=== PATIENT | female | born 1940 | race Asian ===

== ENCOUNTER 2017-07-11 20:25 | Observation (INO) | payer MEDICARE, OTHER ==
--- NOTE | 2017-07-11 20:39 | ER Document Report ---
ED Medical Screen (RME) - General Chief Complaint: Difficulty speaking, dizzy Stated Complaint: SLURRED SPEECH Time Seen by Provider: 07/11/17 20:35 Notes: Family states that last night after coming home from a birthday democrat patient was very weak and could barely get into bed. They state that they noticed when the patient awoke this morning that she was talking "like a baby". Patient states that she has noticed she has had trouble speaking all day. She denies any previous history of stroke. She denies any current pain. She denies any changes of vision or swallowing. She denies any numbness tingling weakness or paresthesias of any extremity focally, however family does state she seems to be weak in general.. TRAVEL OUTSIDE OF THE [place] IN LAST 30 DAYS: No - Related Data Allergies/Adverse Reactions: Sulfa (Sulfonamide Antibiotics) Allergy (Verified 12/15/13 22:26) BLOTCHES Past Medical History - Past Medical History Cardiac Medical History: Reports: Hx Coronary Artery Disease - HIGH CHOLESTEROL , Hx Hypercholesterolemia, Hx Hypertension Denies: Hx Heart Attack Pulmonary Medical History: Denies: Hx Asthma, Hx Bronchitis, Hx COPD, Hx Pneumonia Neurological Medical History: Denies: Hx Cerebrovascular Accident, Hx Seizures Endocrine Medical History: Reports: Hx Diabetes Mellitus Type 2 Musculoskeltal Medical History: Denies Hx Arthritis Past Surgical History: Reports: Hx Hysterectomy - Immunizations Hx Diphtheria, Pertussis, Tetanus Vaccination: Yes Physical Exam - Vital signs Vitals: Temp Pulse Resp BP Pulse Ox 98.4 F 78 16 172/68 H 97 07/11/17 20:31 07/11/17 20:31 07/11/17 20:31 07/11/17 20:31 07/11/17 20:31 Course - Vital Signs Vital signs: Temp Pulse Resp BP Pulse Ox 98.4 F 78 16 172/68 H 97 07/11/17 20:31 07/11/17 20:31 07/11/17 20:31 07/11/17 20:31 07/11/17 20:31
--- NOTE | 2017-07-11 21:03 | RADIOLOGY REPORT (SQ) ---
EXAM DESCRIPTION: CT HEAD WITHOUT COMPLETED DATE/TIME: 07/11/2017 8:51 pm REASON FOR STUDY: slurred speech COMPARISON: None. TECHNIQUE: Axial images acquired through the brain without intravenous contrast. Images reviewed wi th bone, brain and subdural windows. Images stored on PACS. All CT scanners at this facility use dose modulation, iterative reconstruction, and/or weight based d osing when appropriate to reduce radiation dose to as low as reasonably achievable (ALARA). [facility]: Dose Right [facility]: CareDose [facility]: Dose Right [facility]: Teradose 4D [facility]: Xylo RADIATION DOSE: CT Rad equipment meets quality standard of care and radiation dose reduction techniq ues were employed. CTDIvol: 64.6 mGy. DLP: 1163 mGy-cm.mGy. LIMITATIONS: None. FINDINGS: VENTRICLES: Prominent. CEREBRUM: No masses. No hemorrhage. No midline shift. Areas of low density in the white matter mos t likely due to chronic micro-vascular ischemic change. No evidence for acute infarction. CEREBELLUM: No masses. No hemorrhage. No alteration of density. No evidence for acute infarction. EXTRAAXIAL SPACES: Age-related involutional change. No fluid collections. No masses. ORBITS AND GLOBE: No intra- or extraconal masses. Normal contour of globe without masses. CALVARIUM: No fracture. PARANASAL SINUSES: No fluid or mucosal thickening. SOFT TISSUES: No mass or hematoma. OTHER: No other significant finding. IMPRESSION: CHRONIC CHANGES OF ATROPHY AND MICROVASCULAR ISCHEMIA. NO ACUTE PROCESS. EVIDENCE OF ACUTE STROKE: NO. TECHNICAL DOCUMENTATION: JOB ID: [id number] Quality ID # [id number]: Final reports with documentation of one or more dose reduction techniques (e.g., Au tomated exposure control, adjustment of the mA and/or kV according to patient size, use of iterative reconstruction technique) 2010 [employer]- All Rights Reserved Reading location - IP/workstation name: [email or web address]
[2017-07-11 21:39] LABS: ABSOLUTE BASOPHILS # (AUTO) 0.1 10^3/uL (0.0-0.2); ABSOLUTE EOSINOPHILS # (AUTO) 0.1 10^3/uL (0.0-0.6); ABSOLUTE MONOCYTES (AUTO) 0.5 10^3/uL (0.1-1.4); ABSOLUTE NEUT (AUTO) 5.5 10^3/uL (1.7-8.2); BASOPHILS % (AUTO) 0.8 % (0-2); EOSINOPHILS % (AUTO) 0.7 % (0-6); HEMATOCRIT 40.7 % (36.0-47.0); LYMPHOCYTES % (AUTO) 24.9 % (13-45); MEAN CORPUSCULAR HGB CONC 34.4 g/dL (32.0-36.0); MEAN CORPUSCULAR VOLUME 87 fl (80-97); MONOCYTES % (AUTO) 6.1 % (3-13); PLATELET COUNT 295 10^3/uL (150-450); RED BLOOD COUNT 4.66 10^6/uL (3.72-5.28); SEGMENTED NEUTROPHILS % (AUTO) 67.5 % (42-78); TOTAL CELLS COUNTED % (AUTO) 100 %; WHITE BLOOD COUNT 8.1 10^3/uL (4.0-10.5)
[2017-07-11 21:53] LABS: ALANINE AMINOTRANSFERASE 30 U/L (9-52); ALKALINE PHOSPHATASE 94 U/L (38-126); ANION GAP 16 (5-19); ASPARTATE AMINO TRANSFERASE 26 U/L (14-36); BILIRUBIN,DIRECT 0.1 mg/dL (0.0-0.4); BILIRUBIN,TOTAL 0.6 mg/dL (0.2-1.3); BLOOD UREA NITROGEN 21 mg/dL (7-20); CALCIUM 10.6 mg/dL (8.4-10.2); CARBON DIOXIDE 25 mmol/L (22-30); CHLORIDE 90 mmol/L (98-107); GLUCOSE 182 mg/dL (75-110); SODIUM 131.1 mmol/L (137-145); TOTAL PROTEIN 7.9 g/dL (6.3-8.2)
[2017-07-11] MEDS ORDERED: ASPIRIN 81 MG TABLET, CHEWABLE PO ONE (22:25)
--- NOTE | 2017-07-11 22:30 | ER Document Report ---
ED General - General Chief Complaint: Difficulty speaking, dizzy Stated Complaint: SLURRED SPEECH Time Seen by Provider: 07/11/17 20:35 Notes: Patient is a 77-year-old female without past medical history who presents with slurring of her speech since waking up this morning. Patient was last noted to have normal speech prior to going to bed. She has never had similar symptoms in the past. She states the symptoms have been constant since onset. Nothing seems to improve or worsen the symptoms. She has not seen her primary doctor regarding these symptoms. She denies any focal weakness, numbness, headache, neck pain or confusion. Her niece at the bedside who is her attraction attendant states that she does not normally at all speak like this. Family presents to the emergency department when they noted that the symptoms are not improving as they hoped they would. TRAVEL OUTSIDE OF THE [place] IN LAST 30 DAYS: No - Related Data Allergies/Adverse Reactions: Sulfa (Sulfonamide Antibiotics) Allergy (Verified 12/15/13 22:26) BLOTCHES Past Medical History - General Information source: Patient - Social History Smoking Status: Never Smoker Chew tobacco use (# tins/day): No Frequency of alcohol use: None Drug Abuse: None Lives with: Family Family History: Reviewed & Not Pertinent Patient has suicidal ideation: No Patient has homicidal ideation: No - Past Medical History Cardiac Medical History: Reports: Hx Coronary Artery Disease - HIGH CHOLESTEROL , Hx Hypercholesterolemia, Hx Hypertension Denies: Hx Heart Attack Pulmonary Medical History: Denies: Hx Asthma, Hx Bronchitis, Hx COPD, Hx Pneumonia Neurological Medical History: Denies: Hx Cerebrovascular Accident, Hx Seizures Endocrine Medical History: Reports: Hx Diabetes Mellitus Type 2 Renal/ Medical History: Denies: Hx Peritoneal Dialysis Musculoskeltal Medical History: Denies Hx Arthritis Past Surgical History: Reports: Hx Hysterectomy - Immunizations Hx Diphtheria, Pertussis, Tetanus Vaccination: Yes Review of Systems - Review of Systems Notes: Constitutional: Negative for fever. HENT: Negative for sore throat. Eyes: Negative for visual changes. Cardiovascular: Negative for chest pain. Respiratory: Negative for shortness of breath. Gastrointestinal: Negative for abdominal pain, vomiting or diarrhea. Genitourinary: Negative for dysuria. Musculoskeletal: Negative for back pain. Skin: Negative for rash. Neurological: Negative for headaches, weakness or numbness. Positive for slurred speech 10 point ROS negative except as marked above and in HPI. Physical Exam - Vital signs Vitals: Temp Pulse Resp BP Pulse Ox 98.4 F 78 16 172/68 H 97 07/11/17 20:31 07/11/17 20:31 07/11/17 20:31 07/11/17 20:31 07/11/17 20:31 Interpretation: Hypertensive Notes: PHYSICAL EXAMINATION: GENERAL: Well-appearing, well-nourished and in no acute distress. HEAD: Atraumatic, normocephalic. EYES: Pupils equal round and reactive to light, extraocular movements intact, sclera anicteric, conjunctiva are normal. ENT: nares patent, oropharynx clear without exudates. Moist mucous membranes. NECK: Normal range of motion, supple without lymphadenopathy LUNGS: Breath sounds clear to auscultation bilaterally and equal. No wheezes rales or rhonchi. HEART: Regular rate and rhythm without murmurs ABDOMEN: Soft, nontender, normoactive bowel sounds. No guarding, no rebound. No masses appreciated. EXTREMITIES: Normal range of motion, no pitting or edema. No cyanosis. NEUROLOGICAL: Face symmetric. Tongue protrudes midline. Extraocular motions intact. Pupils are 2 mm and equally reactive. Mild expressive aphasia, no receptive aphasia, normal gait. 5 out of 5 strength in both the distal and proximal upper and lower extremities bilaterally. Sensation is grossly intact throughout. Finger to nose testing normal. Pronator drift normal. PSYCH: Normal mood, normal affect. SKIN: Warm, Dry, normal turgor, no rashes or lesions noted. Course - Re-evaluation Re-evalutation: 07/11/17 22:27 Patient presents with signs and symptoms most consistent with an acute stroke. It appears that the patient is a very mild expressive aphasia but this is notable on exam. Her neurologic examination is otherwise unremarkable without any additional focal neurologic deficits. Symptoms have been present since she woke up this morning and she is therefore not a TPA candidate. CT the head shows chronic microvascular changes but no acute infarction or bleed. Patient has received aspirin here in the emergency department but given that she has had an acute stroke she does warrant hospitalization. I discussed with the hospitalist for admission. An MRI and carotid Dopplers will be performed. Her laboratories here in the emergency room to suggest a possible diagnosis of diabetes. Patient and her niece at the bedside are in agreement with this plan. - Vital Signs Vital signs: Temp Pulse Resp BP Pulse Ox 98.5 F 76 19 166/72 H 99 07/12/17 02:22 07/12/17 00:00 07/12/17 02:03 07/12/17 02:03 07/12/17 02:03 - Laboratory Result Diagrams: 07/11/17 21:20 07/11/17 21:20 Laboratory results interpreted by me: 07/11/17 21:20 Sodium 131.1 L Chloride 90 L BUN 21 H Est GFR (Non-Af Amer) 55 L Glucose 182 H Calcium 10.6 H - Diagnostic Test Radiology reviewed: Image reviewed, Reports reviewed Radiology results interpreted by me: 07/11/17 22:28 CT head: No acute intracranial bleed or mass Discharge - Discharge Clinical Impression: Acute ischemic stroke, Expressive aphasia Condition: Fair Disposition: ADMITTED INPATIENT Admitting Provider: Hospitalist - ana Unit Admitted: Telemetry
[2017-07-11] MEDS ORDERED: OXYCODONE-ACETAMINOPHEN 5-325 MG TABLET PO PRN (23:09)
[2017-07-11] MEDS ORDERED: ACETAMINOPHEN 325 MG TABLET PO PRN (23:09)
[2017-07-11] MEDS ORDERED: PROMETHAZINE HCL INJ 25 MG/1 ML VIAL IV PRN (23:09)
[2017-07-12 00:58] LABS: APPEARANCE,URINE CLEAR; BILIRUBIN,URINE NEGATIVE (NEGATIVE); COLOR,URINE STRAW; GLUCOSE, URINE 50 mg/dL (NEGATIVE); KETONES,URINE NEGATIVE (NEGATIVE); LEUKOCYTE ESTERASE,URINE MODERATE (NEGATIVE); NITRITE,URINE NEGATIVE (NEGATIVE); PROTEIN,URINE 100 mg/dL (NEGATIVE); URINE SPECIFIC GRAVITY 1.004; UROBILINOGEN,URINE NEGATIVE mg/dL (<2.0)
[2017-07-12] MEDS ORDERED: DEXTROSE 40% GEL 15 GM TUBE PO PRN ×2 (02:10)
[2017-07-12] MEDS ORDERED: DEXTROSE 50%-WATER 25 GM/50 ML DISP.SYRIN IV PRN ×2 (02:10)
[2017-07-12] MEDS ORDERED: GLUCAGON,HUMAN RECOMB 1 MG INJ IM PRN (02:10)
--- NOTE | 2017-07-12 02:10 | PDOC H&P ---
History of Present Illness Patient complains of: Dysarthria when she woke up this a.m. History of Present Illness: ASHLYN SALCIDO is a 77 year old female with history of hypertension, type 2 diabetes mellitus and hyperlipidemia (not on any medications at this time) was admitted with above-mentioned complaints. Some of the history was obtained from her niece at bedside. The patient apparently noticed that she was aphasic when she woke up this morning. And since it was persistent throughout the day, she decided to come to the hospital for further management and treatment. According to her niece, the patient complained of feeling dizzy but there was no loss of consciousness or any seizure activity witnessed. The patient denied any vertigo, blurred vision , focal numbness or weakness or any dysphasia. She also denied any headache, fever or chills, nausea or vomiting, chest pain or shortness of breath. She is not on baby aspirin at home. In the ED, her temperature was 98.4, heart rate 78, respiratory rate 16, blood pressure 172/68 with oxygen saturation of 97% on room air. Her blood glucose was 182. Her head CT scan did not show any acute findings. She received 81 mg aspirin 1. Past Medical History Medical History: Other - According to the patient is on previous records. Cardiac Medical History: Reports: Coronary Artery Disease, Hyperlipidema - high cholesterol., Hypertension Denies: Myocardial Infarction Pulmonary Medical History: Denies: Asthma, Bronchitis, Chronic Obstructive Pulmonary Disease (COPD), Pneumonia Neurological Medical History: Denies: Seizures Endocrine Medical History: Reports: Diabetes Mellitus Type 2 Musculoskeltal Medical History: Denies: Arthritis Hematology: Denies: Anemia Past Surgical History Past Surgical History: Reports: Hysterectomy Social History Smoking Status: Never Smoker Cigarettes Packs Per Day: 0 Frequency of Alcohol Use: None Hx Recreational Drug Use: No - Advance Directive Resuscitation Status: Full Code Family History Parental Family History Reviewed: Yes - No family history of cardiac disease. Children Family History Reviewed: No Sibling(s) Family History Reviewed.: Yes Medication/Allergy Home Medications: Ascorbic Acid [Vitamin C 500 mg Tablet] 500 mg PO DAILY 06/29/13 Atorvastatin Calcium [Lipitor 40 mg Tablet] 40 mg PO QHS 06/29/13 Lisinopril 5 mg PO DAILY 06/29/13 Metformin HCl [Glucophage] 500 mg PO DAILY 06/29/13 Multivitamin [Multi Vitamin Daily] 1 each PO DAILY 06/29/13 Ciprofloxacin HCl [Cipro 500 mg Tablet] 500 mg PO BID #20 tablet 12/15/13 Allergies/Adverse Reactions: Sulfa (Sulfonamide Antibiotics) Allergy (Verified 12/15/13 22:26) BLOTCHES Review of Systems ROS unobtainable: Other - Positives and negatives as detailed in the HPI. The patient denied any bowel pain, diarrhea constipation or any urinary symptoms. Physical Exam Vital Signs: Temp Pulse Resp BP Pulse Ox 98.4 F 75 16 170/78 H 98 07/11/17 20:31 07/11/17 21:28 07/11/17 21:28 07/11/17 21:28 07/11/17 21:28 Intake & Output 07/10/17 07/11/17 07/12/17 06:59 06:59 06:59 Weight 45.359 kg Results Laboratory Results: 07/11/17 21:20 07/11/17 21:20 07/11/17 07/11/17 21:20 21:20 WBC 8.1 RBC 4.66 Hgb 14.0 Hct 40.7 MCV 87 MCH 30.0 MCHC 34.4 RDW 13.0 Plt Count 295 Seg Neutrophils % 67.5 Lymphocytes % 24.9 Monocytes % 6.1 Eosinophils % 0.7 Basophils % 0.8 Absolute Neutrophils 5.5 Absolute Lymphocytes 2.0 Absolute Monocytes 0.5 Absolute Eosinophils 0.1 Absolute Basophils 0.1 Sodium 131.1 L Potassium 4.0 Chloride 90 L Carbon Dioxide 25 Anion Gap 16 BUN 21 H Creatinine 0.98 Est GFR ( Amer) > 60 Est GFR (Non-Af Amer) 55 L Glucose 182 H Calcium 10.6 H Total Bilirubin 0.6 AST 26 ALT 30 Alkaline Phosphatase 94 Total Protein 7.9 Albumin 5.0 EKG Comments: 12-lead EKG, sinus rhythm ventricular rate 75, [place] 0, QTC prolongation, no acute changes. When compared to previous 12-lead EKG done on 12/15/2013. Impressions: Head CT 07/11/17 20:36 IMPRESSION: CHRONIC CHANGES OF ATROPHY AND MICROVASCULAR ISCHEMIA. NO ACUTE PROCESS. EVIDENCE OF ACUTE STROKE: NO. Assessment & Plan - Diagnosis (1) TIA (transient ischemic attack) Qualifiers: Transient cerebral ischemia type: unspecified Qualified Code(s): G45.9 - Transient cerebral ischemic attack, unspecified Is this a current diagnosis for this admission?: Yes Plan: And/or acute CVA. Not a candidate for TPA given NIHSS 1 and unknown onset of symptoms. Her CAT scan of the head was negative for any acute findings. Will order stroke workup including MRI head, MRA head and neck, echocardiogram and HbA1c and fasting profile. Will start 325 mg aspirin daily in addition to 40 mg Lipitor daily. Will consult speech therapy, no need for PT/OT for now. (2) Essential hypertension Is this a current diagnosis for this admission?: Yes Plan: Permissive hypertension. Will continue to monitor and start BP medications as indicated. Of note, the patient has history of hypertension but she is not on any home medications. (3) Type 2 diabetes mellitus Qualifiers: Diabetes mellitus complication status: without complication Is this a current diagnosis for this admission?: Yes Plan: Will follow-up HbA1c and start lispro sliding scale for now. (4) Hyperlipidemia Qualifiers: Hyperlipidemia type: unspecified Qualified Code(s): E78.5 - Hyperlipidemia , unspecified Is this a current diagnosis for this admission?: Yes Plan: Will follow-up fasting lipid profile and continue Lipitor for now. - Time Time Spent: 50 to 70 Minutes Anticipated discharge: Home
[2017-07-12] MEDS ORDERED: INFLUENZA ADLT QUAD (36MOS+) 2017-18 VAC 0.5 ML SYR IM PRN (04:20)
[2017-07-12] MEDS: HEPARIN SOD (PORCINE) 5,000 UNIT/ML 1 ML SYRINGE SUBCUT SCH ×2 (06:19→13:03)
[2017-07-12 06:55] LABS: HEMATOCRIT 42.5 % (36.0-47.0); HEMOGLOBIN 14.8 g/dL (12.0-15.5); MEAN CORPUSCULAR HEMOGLOBIN 30.2 pg (27.0-33.4); MEAN CORPUSCULAR HGB CONC 34.9 g/dL (32.0-36.0); MEAN CORPUSCULAR VOLUME 86 fl (80-97); PLATELET COUNT 284 10^3/uL (150-450); RED BLOOD COUNT 4.91 10^6/uL (3.72-5.28); RED CELL DISTRIBUTION WIDTH 12.8 % (11.5-14.0); WHITE BLOOD COUNT 7.7 10^3/uL (4.0-10.5)
[2017-07-12 07:11] LABS: ANION GAP 16 (5-19); BLOOD UREA NITROGEN 17 mg/dL (7-20); CALCIUM 10.7 mg/dL (8.4-10.2); CARBON DIOXIDE 27 mmol/L (22-30); CHLORIDE 96 mmol/L (98-107); GLUCOSE 191 mg/dL (75-110); POTASSIUM 4.1 mmol/L (3.6-5.0); SODIUM 139.1 mmol/L (137-145); TRIGLYCERIDES 278 mg/dL (<150)
[2017-07-12 07:19] LABS: CHOLESTEROL 469.06 mg/dL (0-200); VLDL CHOLESTEROL 55.6 mg/dL (10-31)
[2017-07-12 07:38] LABS: DIRECT LDL 340 mg/dL (<100)
--- NOTE | 2017-07-12 08:03 | EKG REPORT ---
SEVERITY:- ABNORMAL ECG - SINUS RHYTHM CONSIDER LEFT VENTRICULAR HYPERTROPHY : Confirmed by: Karthikeyan Zhang MD 12-Jul-2017 08:02:20
[2017-07-12] MEDS: INSULIN LISPRO 100 UNIT/ML 3 ML VIAL SUBCUT PRN ×2 (08:26→13:10)
[2017-07-12] MEDS ORDERED: ASPIRIN 325 MG TABLET, ENT COATED PO SCH (10:00)
--- NOTE | 2017-07-12 11:34 | RADIOLOGY REPORT (SQ) ---
EXAM DESCRIPTION: MRI HEAD COMBO; MRA HEAD WITHOUT COMPLETED DATE/TIME: 07/12/2017 11:13 am REASON FOR STUDY: TIA/CVA COMPARISON: CT brain 07/11/2017 MRA neck without and with contrast same date TECHNIQUE: Multiplanar imaging includes noncontrasted T1, T2, FLAIR, diffusion with ADC map and post gadolinium contrast T1 sequences. Images stored on PACS. [place] MRA exam was performed, with 3D [id number] acquisition. Source data and maximum intensity projected images were reviewed. CONTRAST TYPE AND DOSE: 20 mL Prohance. RENAL FUNCTION: GFR > 60. LIMITATIONS: None. FINDINGS: ANATOMY: No developmental anomalies. Normal vascular flow voids. Pituitary fossa normal. CSF SPACES: Normal in size and contour. No hemorrhage. CEREBRUM: Extensive colonic increased FLAIR/T2 and decreased T1 weighted signal throughout the bifron carmen and biparietal hemispheric white matter from chronic small vessel ischemic change. No mass effec t or midline shift. On diffusion-weighted image 15 series 4, a punctate focus of high signal is present in the left parie carmen cortex. This represents a tiny acute or subacute cortical infarct. POSTERIOR FOSSA: Diffusion-weighted images are positive for a 1.5 cm diameter area of ischemic change . This correlates with increased FLAIR/T2 signal and decreased T1 weighted signal. There is decreas ed density in this area on prior CT 07/11/2017. This likely represents a subacute nonhemorrhagic infa rct. Tiny subacute nonhemorrhagic infarcts are seen in the right cerebellar hemisphere on diffusion weight ed image 6. DIFFUSION IMAGING: Positive as above ORBITS: Post bilateral cataract surgery PARANASAL SINUSES: No fluid levels. Mucosa normal. [place] MRA: Right vertebral artery is dominant, an anatomic variant. Small left vertebral artery with flow in the left PICA identified. Right AICA/PICA trunk is present. Bilateral superior cerebellar and posterior cerebral arteries are patent. There is mild atherosclerotic narrowing of the the proximal right M-1 segment of the right MCA. No s egmental anterior circulation occlusion, aneurysm or vascular malformation. IMPRESSION: Subacute nonhemorrhagic bilateral cerebellar hemisphere and left parietal cortical infar cts. Extensive chronic small vessel ischemic change in the hemispheric white matter No high-grade stenosis of the posterior circulation on MRA a [place]. Mild atherosclerotic change M-1 segment right MCA EVIDENCE OF ACUTE STROKE: NO. COMMENT: Results called to Asiya Lee TECHNICAL DOCUMENTATION: JOB ID: [id number] [employer]- All Rights Reserved Reading location - IP/workstation name: [email or web address]
--- NOTE | 2017-07-12 11:34 | RADIOLOGY REPORT (SQ) ---
EXAM DESCRIPTION: MRI HEAD COMBO; MRA HEAD WITHOUT COMPLETED DATE/TIME: 07/12/2017 11:13 am REASON FOR STUDY: TIA/CVA COMPARISON: CT brain 07/11/2017 MRA neck without and with contrast same date TECHNIQUE: Multiplanar imaging includes noncontrasted T1, T2, FLAIR, diffusion with ADC map and post gadolinium contrast T1 sequences. Images stored on PACS. [place] MRA exam was performed, with 3D [id number]-af-[id number] acquisition. Source data and maximum intensity projected images were reviewed. CONTRAST TYPE AND DOSE: 20 mL Prohance. RENAL FUNCTION: GFR > 60. LIMITATIONS: None. FINDINGS: ANATOMY: No developmental anomalies. Normal vascular flow voids. Pituitary fossa normal. CSF SPACES: Normal in size and contour. No hemorrhage. CEREBRUM: Extensive colonic increased FLAIR/T2 and decreased T1 weighted signal throughout the bifron carmen and biparietal hemispheric white matter from chronic small vessel ischemic change. No mass effec t or midline shift. On diffusion-weighted image 15 series 4, a punctate focus of high signal is present in the left parie carmen cortex. This represents a tiny acute or subacute cortical infarct. POSTERIOR FOSSA: Diffusion-weighted images are positive for a 1.5 cm diameter area of ischemic change . This correlates with increased FLAIR/T2 signal and decreased T1 weighted signal. There is decreas ed density in this area on prior CT 07/11/2017. This likely represents a subacute nonhemorrhagic infa rct. Tiny subacute nonhemorrhagic infarcts are seen in the right cerebellar hemisphere on diffusion weight ed image 6. DIFFUSION IMAGING: Positive as above ORBITS: Post bilateral cataract surgery PARANASAL SINUSES: No fluid levels. Mucosa normal. [place] MRA: Right vertebral artery is dominant, an anatomic variant. Small left vertebral artery with flow in the left PICA identified. Right AICA/PICA trunk is present. Bilateral superior cerebellar and posterior cerebral arteries are patent. There is mild atherosclerotic narrowing of the the proximal right M-1 segment of the right MCA. No s egmental anterior circulation occlusion, aneurysm or vascular malformation. IMPRESSION: Subacute nonhemorrhagic bilateral cerebellar hemisphere and left parietal cortical infar cts. Extensive chronic small vessel ischemic change in the hemispheric white matter No high-grade stenosis of the posterior circulation on MRA [place]. Mild atherosclerotic change M-1 segment right MCA EVIDENCE OF ACUTE STROKE: NO. COMMENT: Results called to Asiya Lee TECHNICAL DOCUMENTATION: JOB ID: [id number] [email or web address]- All Rights Reserved Reading location - IP/workstation name: [email or web address]
--- NOTE | 2017-07-12 11:39 | RADIOLOGY REPORT (SQ) ---
EXAM DESCRIPTION: MRA NECK COMBO COMPLETED DATE/TIME: 07/12/2017 11:14 am REASON FOR STUDY: TIA/CVA COMPARISON: CT brain 07/11/2017 MR spine brain without and with contrast 07/12/2017 MRA exam [place] 07/12/2017 TECHNIQUE: MRA of the carotid and vertebral arteries was performed using 2D and 3D [id number]-cs-[id number] te chniques without and with the use of gadolinium. 3-D MIPs performed at the workstation and stored on PACS. CONTRAST TYPE AND DOSE: 20 mL Prohance. RENAL FUNCTION: GFR > 60. LIMITATIONS: Limited contrast bolus FINDINGS: GREAT VESSEL ORIGINS: Not included in the field of view VERTEBRAL ARTERIES: Right vertebral artery is dominant, with strong MR flow signal throughout its cou rse in the neck and at the skullbase. Left vertebral artery is nondominant, small in size throughout the neck, with diminished flow signal as it courses around the left C1 lateral mass, with flow signal identified in the intracranial portio n. High cervical stenosis could not entirely be excluded. This is of area of signal dropout on the 2D bomx-zl-gipcek images related to in plane flow. RIGHT CAROTID SYSTEM: No significant stenosis. LEFT CAROTID SYSTEM: No significant stenosis. OTHER: No other significant finding. IMPRESSION: No cervical carotid or carotid bifurcation significant stenosis. Right vertebral artery dominant. Small left vertebral artery, there is some signal dropout at the level of the left C1 lateral mass wh ich may be artifactual. Dissection in this region could not entirely be excluded COMMENT: Quality ID #[id number]: Measurements of distal internal carotid diameter were used as the denomina tor for stenosis measurement. TECHNICAL DOCUMENTATION: JOB ID: [id number] [employer]- All Rights Reserved Reading location - IP/workstation name: [email or web address]
--- NOTE | 2017-07-12 15:17 | PDOC DISCHARGE SUMMARY ---
General - Admit/Disc Date/PCP Admission Date/Primary Care Provider: 07/11/17 23:10 financial aid administrator: Dr Ny Discharge Date: 07/12/17 - Discharge Diagnosis (1) Acute CVA (cerebrovascular accident) Is this a current diagnosis for this admission?: Yes Summary: The patient had evidence of an acute CVA. MRI of the brain was positive for subacute nonhemorrhagic bilateral cerebellar hemisphere and left parietal cortical infarct. She had extensive chronic small vessel ischemic changes noted as well. She had an MRA of the carotid arteries and [place] with no significant stenosis. She has been started on at 325 mg aspirin as well as high-dose Lipitor. She will follow-up with her primary care physician next week. (2) Hypertriglyceridemia Is this a current diagnosis for this admission?: Yes Summary: The patient has a markedly elevated lipid panel. Total cholesterol of 469, LDL of 340, triglycerides of 278. HDL is 57. She has been started on 80 mg of Lipitor as well as 145 mg of TriCor daily. (3) Type 2 diabetes mellitus Is this a current diagnosis for this admission?: Yes Summary: Hemoglobin A1c was 7.6. She will resume her home regimen. (4) Ataxia Is this a current diagnosis for this admission?: Yes Summary: The patient was evaluated by physical therapy. They are recommending home health physical therapy. I am getting the patient a rolling walker. (5) Essential hypertension Is this a current diagnosis for this admission?: Yes Summary: Would recommend aggressive control. We will allow for permissive hypertension here in the hospital due to acute CVA. Her blood pressure is above goal however (6) Hyponatremia Is this a current diagnosis for this admission?: Yes Summary: Resolved with IV fluid hydration. Likely due to volume depletion (7) Hypercalcemia Is this a current diagnosis for this admission?: Yes Summary: Hypertension this did not improve with IV fluid hydration. Further workup can be obtained as an outpatient. - Additional Information Resuscitation Status: Full Code Discharge Diet: Cardiac Discharge Activity: Activity As Tolerated, Balance Activity w/Rest, Slowly Increase Activity, Supervised Activity Prescriptions: Atorvastatin Calcium [Lipitor 80 mg Tablet] 80 mg PO QHS #30 tablet Fenofibrate Nanocrystallized [Tricor 145 mg Tablet] 145 mg PO QHS #30 tablet Aspirin [Ecotrin 325 mg EC Tablet] 325 mg PO DAILY #30 tabec Home Medications: Aspirin [Ecotrin 325 mg EC Tablet] 325 mg PO DAILY #30 tabec 07/12/17 Atorvastatin Calcium [Lipitor 80 mg Tablet] 80 mg PO QHS #30 tablet 07/12/17 Donepezil HCl [Aricept] 10 mg PO DAILY 07/12/17 Fenofibrate Nanocrystallized [Tricor 145 mg Tablet] 145 mg PO QHS #30 tablet Memantine HCl [Namenda] 5 mg PO DAILY 07/12/17 Pioglitazone HCl [Actos 15 mg Tablet] 15 mg PO DAILY 07/12/17 Sitagliptin Phos/Metformin HCl [Janumet Xr 50-1,000 mg Tablet] 1 tab PO BID History of Present Illness Patient complains of: Difficulty walking with slurred speech History of Present Illness: The patient presented to the hospital with difficulty speaking and feeling off balance. Hospital Course Hospital Course: The patient is a pleasant 77-year-old female with a past medical history significant for hypertension, type 2 diabetes mellitus and hyperlipidemia. She was not on any medications for her cholesterol at the time of admission. The patient was brought to the hospital with some aphasia. She also was complaining of being off balance. The patient in the emergency room had a CT of the brain which did not reveal any acute findings. She was placed in observation in the hospital. The patient was found to have evidence of an acute bilateral cerebellar infarct. She has been started on 325 mg aspirin and aggressive lipid control. She has a markedly elevated lipid panel. The patient was evaluated by physical therapy and was able to ambulate safely with a rolling walker. They are recommending home health physical therapy at discharge. The patient did have an MRA of the neck and the [place] both of which did not reveal any hemodynamically significant stenosis. She did have an echocardiogram performed. The informal report was that it was normal. She will follow-up with her primary care physician Dr. Alvarez hopefully at the end of this week or the beginning of next week. He can obtain the formal report for follow-up. At this point maximum hospital benefit has been reached. The patient will be discharged home today in stable condition. Physical Exam Vital Signs: Temp Pulse Resp BP Pulse Ox 98.7 F 83 16 145/77 H 100 07/12/17 12:20 07/12/17 12:20 07/12/17 12:20 07/12/17 12:20 07/12/17 12:20 Intake & Output 07/11/17 07/12/17 07/13/17 06:59 06:59 06:59 Intake Total 0 Balance 0 Weight 43.8 kg General appearance: PRESENT: no acute distress, well-developed, well-nourished Head exam: PRESENT: atraumatic, normocephalic Mouth exam: PRESENT: moist, tongue midline Respiratory exam: PRESENT: clear to auscultation rhoda. ABSENT: rales, rhonchi, wheezes Cardiovascular exam: PRESENT: RRR. ABSENT: diastolic murmur, rubs, systolic murmur GI/Abdominal exam: PRESENT: normal bowel sounds, soft. ABSENT: distended, guarding, mass, organolmegaly, rebound, tenderness Rectal exam: PRESENT: deferred Extremities exam: PRESENT: full ROM. ABSENT: calf tenderness, clubbing, pedal edema Neurological exam: PRESENT: alert, altered, awake, oriented to person, oriented to place, oriented to time, oriented to situation, ataxia, other - She has some slight slurred speech but her aphasia is gone. Psychiatric exam: PRESENT: appropriate affect, normal mood. ABSENT: homicidal ideation, suicidal ideation Skin exam: PRESENT: dry, intact, warm. ABSENT: cyanosis, rash Results Laboratory Results: 07/12/17 06:26 07/12/17 06:26 07/11/17 07/12/17 07/12/17 23:29 06:26 06:26 WBC 7.7 RBC 4.91 Hgb 14.8 Hct 42.5 MCV 86 MCH 30.2 MCHC 34.9 RDW 12.8 Plt Count 284 Sodium 139.1 Potassium 4.1 Chloride 96 L Carbon Dioxide 27 Anion Gap 16 BUN 17 Creatinine 0.86 Est GFR ( Amer) > 60 Est GFR (Non-Af Amer) > 60 Glucose 191 H Calcium 10.7 H Triglycerides 278 H Cholesterol 469.06 H LDL Cholesterol Direct 340 H VLDL Cholesterol 55.6 H HDL Cholesterol 57 Urine Color STRAW Urine Appearance CLEAR Urine pH 6.0 Ur Specific [place] 1.004 Urine Protein 100 H Urine Glucose (UA) 50 H Urine Ketones NEGATIVE Urine Blood SMALL H Urine Nitrite NEGATIVE Ur Leukocyte Esterase MODERATE H Urine WBC (Auto) 19 Urine RBC (Auto) 1 Impressions: Head CT 07/11/17 20:36 IMPRESSION: CHRONIC CHANGES OF ATROPHY AND MICROVASCULAR ISCHEMIA. NO ACUTE PROCESS. EVIDENCE OF ACUTE STROKE: NO. Brain MRI with MRA 07/12/17 00:00 IMPRESSION: Subacute nonhemorrhagic bilateral cerebellar hemisphere and left parietal cortical infarcts. Extensive chronic small vessel ischemic change in the hemispheric white matter No high-grade stenosis of the posterior circulation on MRA a [place]. Mild atherosclerotic change M-1 segment right MCA EVIDENCE OF ACUTE STROKE: NO. Head MRI 07/12/17 00:00 IMPRESSION: Subacute nonhemorrhagic bilateral cerebellar hemisphere and left parietal cortical infarcts. Extensive chronic small vessel ischemic change in the hemispheric white matter No high-grade stenosis of the posterior circulation on MRA a [place]. Mild atherosclerotic change M-1 segment right MCA EVIDENCE OF ACUTE STROKE: NO. Neck MRA 07/12/17 00:00 IMPRESSION: No cervical carotid or carotid bifurcation significant stenosis. Right vertebral artery dominant. Small left vertebral artery, there is some signal dropout at the level of the left C1 lateral mass which may be artifactual. Dissection in this region could not entirely be excluded Qualifiers - * PATEINT BEING DISCHARGED WITH ANY OF THE FOLLOWING DIAGNOSIS?: Stroke VTE patient discharged on overlapping Therapy?: No Reason(s) for not prescribing Overlap Therapy:: Not indicated Stroke Pt being discharged on Anti-thrombolytic therapy?: Yes Stroke Pt being discharged on Anti-coagulation therapy?: No Reason(s) for not prescribing Anti-coagulation therapy:: Tx not tolerated Stroke Pt being discharged on Statins?: Yes Plan Discharge Plan: She will be discharged home today with home health services. Time Spent: Greater than 30 Minutes
[2017-07-12 16:53] VITALS: BP 154/41
--- NOTE | 2017-07-12 18:32 | XCELERA REPORT ---
[address] [address] Transthoracic Echocardiogram Report Name: ASHLYN SALCIDO Age: 77 yrs Gender: Female : 1940 Patient Status: Inpatient Patient Location: [address] [place] [address] Study Date: 07/12/2017 02:32 PM Height: 59 in Weight: 97 lb BSA: 1.4 m2 Procedure: A complete two-dimensional transthoracic echocardiogram was performed (2D, M-mode, spectral and color flow Doppler). The study was technically adequate with some images being suboptimal in quality. Reason For Study: TIA/CVA Ordering Physician: CATHY MOLINA Performed By: Heidi Houston Interpretation Summary The left ventricular ejection fraction is normal. Doppler measurements suggest pseudonormalized left ventricular relaxation, which is associated with grade II/IV or mild to moderate diastolic dysfunction There is mild concentric left ventricular hypertrophy. The left ventricle is grossly normal size. Wall motion cannot be accurately commented on, but no definite regional wall motion abnormalities noted. The right ventricular systolic function is normal. The right atrium is normal. The left atrial size is normal. There is a trace amount of mitral regurgitation There is no mitral valve stenosis. There is a mild to moderate amount of aortic regurgitation There is no aortic valve stenosis There is a trace or physiologic amount of tricuspid regurgitation Tricuspid regurgitation jet envelope not well defined to measure RV systolic pressure accurately. The aortic root is not well visualized but is probably normal size. The inferior vena cava appeared normal and decreased > 50% with respiration (RAP 5-10 mmHg) There is no pericardial effusion. No definite cardiac source of CVA/TIA noted on this particular trans- thoracic study. Consider GIULIA if clinically indicated. May consider mobile cardiac telemetry monitoring (MCT) for ruling out transient AFIB. MMode/2D Measurements & Calculations RVDd: 2.2 cm LVIDd: 3.4 cm FS: 35.1 % Ao root diam: 2.5 cm IVSd: 0.94 cm LVIDs: 2.2 cm EDV(Teich): 48.0 ml LVPWd: 0.91 cm ESV(Teich): 16.5 ml Ao root area: 4.9 cm2 EF(Teich): 65.6 % Doppler Measurements & Calculations MV E max luly: MV dec slope: Ao V2 max: AI max luly: 83.3 cm/sec 159.3 cm/sec 568.0 cm/sec MV A max luly: 425.2 cm/sec2 Ao max PG: AI max P.6 cm/sec MV dec time: 10.2 mmHg 129.0 mmHg MV E/A: 0.75 0.20 sec AI dec slope: 262.7 cm/sec2 AI P1/2t: 633.2 msec LV V1 max PG: PA V2 max: PI end-d luly: TR max luly: 7.7 mmHg 118.1 cm/sec 83.1 cm/sec 173.2 cm/sec LV V1 max: PA max P.6 mmHg TR max P.5 cm/sec 12.0 mmHg Left Ventricle The left ventricle is grossly normal size. There is mild concentric left ventricular hypertrophy. The left ventricular ejection fraction is normal. Doppler measurements suggest pseudonormalized left ventricular relaxation, which is associated with grade II/IV or mild to moderate diastolic dysfunction. Wall motion cannot be accurately commented on, but no definite regional wall motion abnormalities noted. Right Ventricle The right ventricle is grossly normal size. There is normal right ventricular wall thickness. The right ventricular systolic function is normal. Atria The right atrium is normal. The left atrial size is normal. Interarterial septum not well visualized and not well dopplered. Cannot comment on ASD/PFO presence. Mitral Valve The mitral valve is grossly normal. There is no mitral valve stenosis. There is a trace amount of mitral regurgitation. Aortic Valve The aortic valve is grossly normal. There is no aortic valve stenosis. There is a mild to moderate amount of aortic regurgitation. Tricuspid Valve The tricuspid valve is not well visualized, but is grossly normal. There is no tricuspid stenosis. There is a trace or physiologic amount of tricuspid regurgitation. Tricuspid regurgitation jet envelope not well defined to measure RV systolic pressure accurately. Pulmonic Valve The pulmonic valve is not well visualized. Great Vessels The aortic root is not well visualized but is probably normal size. The inferior vena cava appeared normal and decreased > 50% with respiration (RAP 5-10 mmHg). Effusions There is no pericardial effusion. Incidental Findings No definite cardiac source of CVA/TIA noted on this particular trans- thoracic study. Consider GIULIA if clinically indicated. May consider mobile cardiac telemetry monitoring (MCT) for ruling out transient AFIB. : CATHY MOLINA > Junior Kang
[2017-07-12] MEDS ORDERED: ATORVASTATIN CALCIUM 40 MG TABLET PO SCH (22:00)
[2017-07-12] MEDS ORDERED: OXYCODONE-ACETAMINOPHEN 5-325 MG TABLET PO PRN (23:24)
--- NOTE | 2017-07-19 20:05 | PDOC PROGRESS REPORT ---
Subjective Subjective: Patient presents with a family friend for her 7-14 day discharge follow-up visit as part of the [facility] study. Patient was discharged after having a subacute nonhemorrhagic bilateral cerebellar hemisphere and left parietal cortical infarct, with chronic small vessel ischemic changes noted on MRI. Patient denies any new complaints. Patient states that she initially had difficulty with speech but upon discharge patient states that her speech had only been mildly slurred. Patient denies any slurring of speech at this time but states that her speech is not yet back to her normal baseline. Patient is requesting speech therapy. Patient has already had a visit by physical therapy at her home. Patient also has a planned follow-up appointment with her primary doctor Dr. Ny tomorrow. Patient states that she has been compliant with her medications, and has no difficulty in obtaining her prescriptions. Patient's friend, who is a nurse states that patient has had questionable compliance with taking her diabetic medication. Patient states that she does not like the way she feels after taking her cholesterol medication, stating that it makes her "feel bad". Patient states that she has been exercising frequently and going through strengthening exercises with her friend who is a nurse. Patient's friend also states that they have been working with her by playing card games and practicing her speech at home as patient is trilingual and so is she and her family. Constitutional: [PRESENT: as per HPI. ABSENT: chills, fever, weight gain, weight loss] Eyes: [ABSENT: visual disturbances] Ears: [ABSENT: hearing changes] Cardiovascular: [ABSENT: chest pain, dyspnea on exertion, edema, orthropnea, palpitations] Respiratory: [ABSENT: cough, hemoptysis] Gastrointestinal: [ABSENT: abdominal pain, nausea, vomiting] Genitourinary: [ABSENT: dysuria, hematuria] Musculoskeletal: [ABSENT: Extremity weakness] Integumentary: [ABSENT: rash] Neurological: Present: reported abnormal speech [ABSENT: abnormal gait, confusion, dizziness, focal weakness, syncope] Psychiatric: [ABSENT: anxiety, depression, homicidal ideation, suicidal ideation ] Allergies/Adverse Reactions: Sulfa (Sulfonamide Antibiotics) Allergy (Verified 12/15/13 22:26) BLOTCHES Home Medications: Donepezil HCl [Aricept] 10 mg PO DAILY 07/12/17 Memantine HCl [Namenda] 5 mg PO DAILY 02/27/18 Pioglitazone HCl [Actos 15 mg Tablet] 15 mg PO DAILY 07/12/17 Sitagliptin Phos/Metformin HCl [Janumet Xr 50-1,000 mg Tablet] 1 tab PO BID Physical Exam Vital Signs: Blood pressure 143/76, heart rate 84, respirations 16 General appearance: PRESENT: no acute distress, thin. ABSENT: disheveled, hard of hearing Head exam: PRESENT: atraumatic, normocephalic Eye exam: PRESENT: conjunctiva pink, EOMI Mouth exam: PRESENT: moist, tongue midline Neck exam: PRESENT: full ROM. ABSENT: lymphadenopathy, meningismus, tenderness , thyromegaly Respiratory exam: PRESENT: clear to auscultation rhoda, symmetrical, unlabored Cardiovascular exam: PRESENT: RRR. ABSENT: diastolic murmur Pulses: PRESENT: normal radial pulses, +2 pedal pulses bilateral Vascular exam: PRESENT: normal capillary refill GI/Abdominal exam: PRESENT: soft Musculoskeletal exam: PRESENT: ambulatory, full ROM Psychiatric exam: PRESENT: normal mood Skin exam: PRESENT: dry, intact, normal color, warm. ABSENT: rash - Extreminites General upper extremity: Normal inspection, Normal ROM, Normal strength General lower extremity: Normal inspection, Normal ROM, Normal strength. negative: Edema - Neurological Neuro grossly intact: Yes Cognition: Normal [place] Coma Scale Eye Opening: Spontaneous [place] Coma Scale Verbal: Oriented Mary Coma Scale Motor: Obeys Commands [place] Coma Scale Total: 15 Speech: Other - No perceived speech abnormality. Patient speaks with a very thick accent, patient was able to be understood without difficulty, no noted slurring. negative: Dysarthria, Expressive aphasia, Receptive aphasia Cranial nerves: Normal. negative: Facial palsy, Tongue deviation Cerebellar coordination: Normal, Heel-andrew, Finger-nose rhombey, Rapid alt. 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 1=hypoactive. 2=normal. 3=increased. 4=clonus Results - x laboratory: 07/11/17 07/12/17 07/12/17 23:29 06:07 06:26 WBC 7.7 RBC 4.91 Hgb 14.8 Hct 42.5 MCV 86 MCH 30.2 MCHC 34.9 RDW 12.8 Plt Count 284 Sodium Potassium Chloride Carbon Dioxide Anion Gap BUN Creatinine Est GFR ( Amer) Est GFR (Non-Af Amer) Glucose POC Glucose 195 H Hemoglobin A1c % Calcium Triglycerides Cholesterol LDL Cholesterol Direct VLDL Cholesterol HDL Cholesterol Urine Color STRAW Urine Appearance CLEAR Urine pH 6.0 Ur Specific [place] 1.004 Urine Protein 100 H Urine Glucose (UA) 50 H Urine Ketones NEGATIVE Urine Blood SMALL H Urine Nitrite NEGATIVE Urine Bilirubin NEGATIVE Urine Urobilinogen NEGATIVE Ur Leukocyte Esterase MODERATE H Urine WBC (Auto) 19 Urine RBC (Auto) 1 Squamous Epi Cells Auto <1 Urine Mucus (Auto) RARE Urine Ascorbic Acid NEGATIVE 07/12/17 07/12/17 07/12/17 06:26 06:26 12:15 WBC RBC Hgb Hct MCV MCH MCHC RDW Plt Count Sodium 139.1 Potassium 4.1 Chloride 96 L Carbon Dioxide 27 Anion Gap 16 BUN 17 Creatinine 0.86 Est GFR ( Amer) > 60 Est GFR (Non-Af Amer) > 60 Glucose 191 H POC Glucose 213 H Hemoglobin A1c % 7.6 H Calcium 10.7 H Triglycerides 278 H Cholesterol 469.06 H LDL Cholesterol Direct 340 H VLDL Cholesterol 55.6 H HDL Cholesterol 57 Urine Color Urine Appearance Urine pH Ur Specific [place] Urine Protein Urine Glucose (UA) Urine Ketones Urine Blood Urine Nitrite Urine Bilirubin Urine Urobilinogen Ur Leukocyte Esterase Urine WBC (Auto) Urine RBC (Auto) Squamous Epi Cells Auto Urine Mucus (Auto) Urine Ascorbic Acid Radiology: Brain MRI with MRA 07/12/17 00:00 IMPRESSION: Subacute nonhemorrhagic bilateral cerebellar hemisphere and left parietal cortical infarcts. Extensive chronic small vessel ischemic change in the hemispheric white matter No high-grade stenosis of the posterior circulation on MRA a [place]. Mild atherosclerotic change M-1 segment right MCA EVIDENCE OF ACUTE STROKE: NO. Head MRI 07/12/17 00:00 IMPRESSION: Subacute nonhemorrhagic bilateral cerebellar hemisphere and left parietal cortical infarcts. Extensive chronic small vessel ischemic change in the hemispheric white matter No high-grade stenosis of the posterior circulation on MRA a [place]. Mild atherosclerotic change M-1 segment right MCA EVIDENCE OF ACUTE STROKE: NO. Neck MRA 07/12/17 00:00 IMPRESSION: No cervical carotid or carotid bifurcation significant stenosis. Right vertebral artery dominant. Small left vertebral artery, there is some signal dropout at the level of the left C1 lateral mass which may be artifactual. Dissection in this region could not entirely be excluded Assessment and Plan - Plan Plan: Patient encouraged to stay compliant with her medications at this time. Patient encouraged to discuss medication regimen with her primary doctor at her appointment tomorrow to discuss any potential medication changes. Reviewed patient's cholesterol panel with her and discussed importance of compliance with her TriCor and atorvastatin. Reviewed patient's risk factors for CVA including her hypertension, diabetes, dyslipidemia as well as how she can minimize her risk for CVA in the future. Discussed importance of diet, exercise as well as medication compliance. Patient advised that a copy of her care plan will be forwarded to her primary doctor's office. Patient also advised that her concerns about the need for speech therapy will be forwarded to her primary doctor's office as well. Patient advised that the stroke nurse will be following up at 30 days and 60 days with a phone call.
== END 2017-07-12 17:27 | disposition home or self-care (01) ==
LOC: ER 20:25 → EH 23:10 → INTOOBSV 23:10 → 3N 07-12 03:55
PROVIDERS: ADMIT Internal Medicine Geriatric Medicine; ATTEND Internal Medicine Geriatric Medicine
DX: I63.9 Cerebral infarction, unspecified (principal); R27.0 Ataxia, unspecified; E87.1 Hypo-osmolality and hyponatremia; E78.1 Pure hyperglyceridemia; E11.9 Type 2 diabetes mellitus without complications; I10 Essential (primary) hypertension; R47.81 Slurred speech; E83.52 Hypercalcemia; I25.10 Atherosclerotic heart disease of native coronary artery without angina pectoris; Z79.899 Other long term (current) drug therapy; Z79.84 Long term (current) use of oral hypoglycemic drugs
CPT/HCPCS: 93005; 99285; 36415 ×2; 82962; 85025; 85027; 80048; 80053; 81001; 83036; 80061; 93306; 70553; 70544; 70549; 70450; 93010; 97163; 97167; A9576; A9270 ×3; J1644; J3490; G8978; G8979; G8987; G8988; J1815

== ENCOUNTER 2017-09-29 09:30 | Inpatient (IN) | payer MEDICARE, OTHER ==
[2017-09-29 10:39] LABS: ABSOLUTE LYMPHOCYTES (AUTO) 0.9 10^3/uL (0.5-4.7); ABSOLUTE MONOCYTES (AUTO) 0.5 10^3/uL (0.1-1.4); ABSOLUTE NEUT (AUTO) 7.9 10^3/uL (1.7-8.2); BASOPHILS % (AUTO) 0.5 % (0-2); EOSINOPHILS % (AUTO) 0.1 % (0-6); HEMATOCRIT 39.8 % (36.0-47.0); HEMOGLOBIN 13.9 g/dL (12.0-15.5); LYMPHOCYTES % (AUTO) 9.9 % (13-45); MEAN CORPUSCULAR HEMOGLOBIN 30.3 pg (27.0-33.4); MEAN CORPUSCULAR HGB CONC 34.9 g/dL (32.0-36.0); MEAN CORPUSCULAR VOLUME 87 fl (80-97); MONOCYTES % (AUTO) 5.4 % (3-13); PLATELET COUNT 269 10^3/uL (150-450); RED BLOOD COUNT 4.58 10^6/uL (3.72-5.28); RED CELL DISTRIBUTION WIDTH 13.5 % (11.5-14.0); SEGMENTED NEUTROPHILS % (AUTO) 84.1 % (42-78); TOTAL CELLS COUNTED % (AUTO) 100 %; WHITE BLOOD COUNT 9.4 10^3/uL (4.0-10.5)
[2017-09-29 11:14] LABS: CREATINE KINASE MB 4.83 ng/mL (<4.55)
[2017-09-29 11:17] LABS: TROPONIN I 0.063 ng/mL
[2017-09-29 11:18] LABS: ALANINE AMINOTRANSFERASE 36 U/L (9-52); ALBUMIN 5.2 g/dL (3.5-5.0); ALKALINE PHOSPHATASE 106 U/L (38-126); ANION GAP 15 (5-19); ASPARTATE AMINO TRANSFERASE 61 U/L (14-36); BILIRUBIN,DIRECT 0.4 mg/dL (0.0-0.4); BILIRUBIN,TOTAL 0.9 mg/dL (0.2-1.3); BLOOD UREA NITROGEN 20 mg/dL (7-20); CALCIUM 10.5 mg/dL (8.4-10.2); CARBON DIOXIDE 27 mmol/L (22-30); CHLORIDE 84 mmol/L (98-107); CREATINE KINASE 993 U/L (30-135); GLUCOSE 207 mg/dL (75-110); POTASSIUM 4.2 mmol/L (3.6-5.0); SODIUM 125.5 mmol/L (137-145); TOTAL PROTEIN 8.3 g/dL (6.3-8.2)
--- NOTE | 2017-09-29 11:36 | RADIOLOGY REPORT (SQ) ---
EXAM DESCRIPTION: CT HEAD WITHOUT COMPLETED DATE/TIME: 09/29/2017 11:22 am REASON FOR STUDY: Falling and balance off. COMPARISON: 07/11/2017 TECHNIQUE: Axial images acquired through the brain without intravenous contrast. Images reviewed wi th bone, brain and subdural windows. Additional sagittal and coronal reconstructions were generated. Images stored on PACS. All CT scanners at this facility use dose modulation, iterative reconstruction, and/or weight based d osing when appropriate to reduce radiation dose to as low as reasonably achievable (ALARA). [facility]: Dose Right [facility]: CareDose [facility]: Dose Right [facility]: Teradose 4D [facility]: Smart Nomacorc RADIATION DOSE: CT Rad equipment meets quality standard of care and radiation dose reduction techniq ues were employed. CTDIvol: 53.2 mGy. DLP: 991 mGy-cm.mGy. LIMITATIONS: None. FINDINGS: VENTRICLES: Prominent. CEREBRUM: No masses. No hemorrhage. No midline shift. Areas of low density in the white matter mos t likely due to chronic micro-vascular ischemic change. No evidence for acute infarction. CEREBELLUM: No masses. No hemorrhage. No alteration of density. No evidence for acute infarction. EXTRAAXIAL SPACES: Age-related involutional change. No fluid collections. No masses. ORBITS AND GLOBE: No intra- or extraconal masses. Normal contour of globe without masses. CALVARIUM: No fracture. PARANASAL SINUSES: No fluid or mucosal thickening. SOFT TISSUES: No mass or hematoma. OTHER: No other significant finding. IMPRESSION: CHRONIC CHANGES OF ATROPHY AND MICROVASCULAR ISCHEMIA. NO ACUTE PROCESS. EVIDENCE OF ACUTE STROKE: NO. TECHNICAL DOCUMENTATION: JOB ID: [id number] Quality ID # [id number]: Final reports with documentation of one or more dose reduction techniques (e.g., Au tomated exposure control, adjustment of the mA and/or kV according to patient size, use of iterative reconstruction technique) 2010 [employer]- All Rights Reserved Reading location - IP/workstation name: [email or web address]
[2017-09-29 11:53] LABS: APPEARANCE,URINE CLEAR; BILIRUBIN,URINE NEGATIVE (NEGATIVE); COLOR,URINE STRAW; GLUCOSE, URINE 150 mg/dL (NEGATIVE); KETONES,URINE NEGATIVE (NEGATIVE); LEUKOCYTE ESTERASE,URINE NEGATIVE (NEGATIVE); NITRITE,URINE NEGATIVE (NEGATIVE); PROTEIN,URINE 100 mg/dL (NEGATIVE); URINE SPECIFIC GRAVITY 1.006; UROBILINOGEN,URINE NEGATIVE mg/dL (<2.0)
--- NOTE | 2017-09-29 12:32 | ER Document Report ---
ED Dizziness/Weakness - General Chief Complaint: Weakness Stated Complaint: FALL Time Seen by Provider: 09/29/17 10:59 Notes: Patient has been weak over the last couple of days. She fell twice last and once this morning. She has bruises of her right chest and several bruises of her face from these falls. She suffered a stroke about 3 months ago which left her with some residual difficulty walking and so she uses a walker, although she had been doing well without the walker of late until just last evening. Denies any headache. Denies any chest pains. Patient says that she is just very weak and not able to bear weight on her legs. TRAVEL OUTSIDE OF THE [place] IN LAST 30 DAYS: No - Related Data Allergies/Adverse Reactions: Sulfa (Sulfonamide Antibiotics) Allergy (Verified 09/29/17 09:33) SHANKAR Past Medical History - Social History Smoking Status: Never Smoker Frequency of alcohol use: None Drug Abuse: None Family History: Reviewed & Not Pertinent Patient has suicidal ideation: No Patient has homicidal ideation: No - Past Medical History Cardiac Medical History: Reports: Hx Coronary Artery Disease - HIGH CHOLESTEROL , Hx Hypercholesterolemia Denies: Hx Heart Attack Neurological Medical History: Reports: Hx Cerebrovascular Accident - About 3 months ago. Endocrine Medical History: Reports: Hx Diabetes Mellitus Type 2 Past Surgical History: Reports: Hx Hysterectomy - Immunizations Hx Diphtheria, Pertussis, Tetanus Vaccination: Yes Review of Systems - Review of Systems Notes: REVIEW OF SYSTEMS: CONSTITUTIONAL : Denies fever. EENT: Denies eye, ear, nose or mouth or throat pain or other symptoms. CARDIOVASCULAR: Denies chest pain. RESPIRATORY: Denies cough, chest congestion, or shortness of breath. GASTROINTESTINAL: Denies abdominal pain or nausea, vomiting, or diarrhea. GENITOURINARY: Denies difficulty or painful urinating, urinary frequency, blood in urine. MUSCULOSKELETAL: Denies back or neck pain. Denies joint pain or swelling. SKIN: Denies rash or skin lesions. Does have abrasions and bruises of her face. Also a fairly large bruise of the right breast region. NEUROLOGICAL: Denies LOC or altered mental status. Denies headache. Denies sensory loss or motor deficits. Complains of extreme weakness. ALL OTHER SYSTEMS REVIEWED AND NEGATIVE. Physical Exam - Vital signs Vitals: Temp Pulse Resp BP Pulse Ox 98.7 F 81 16 133/61 H 96 09/29/17 09:57 09/29/17 09:57 09/29/17 09:57 09/29/17 09:57 09/29/17 09:57 - Notes Notes: PHYSICAL EXAMINATION: GENERAL: Well-appearing, in no acute distress. HEAD: Atraumatic, normocephalic. Face has some bruising and swelling and abrasions of the left side, upper forehead, several areas of the face. EYES: Pupils equal round and reactive to light, extraocular movements intact. ENT: oropharynx clear without exudates. Moist mucous membranes. NECK: Normal range of motion, supple. LUNGS: Breath sounds clear and equal bilaterally. Bruising of the right anterior chest/breast. HEART: Regular rate and rhythm without murmurs. ABDOMEN: Soft, nontender. No guarding or rebound. No masses. BACK: No tenderness throughout entire back. EXTREMITIES: Normal range of motion without pain. Full range of motion, but very weak. Unable to stand or walk without assistance. NEUROLOGICAL: Normal speech, limited gait with assistance. Normal sensory, motor, and reflex exams. Awake, alert, and oriented x3. PSYCH: Normal mood, normal affect. SKIN: Warm, dry, no rashes. Course - Re-evaluation Re-evalutation: 09/29/17 12:44 Labs come back showing hyponatremia and elevated CPK. Patient will need IV hydration. Spoke with hospitalist who is admitting the patient to [facility]. - Vital Signs Vital signs: Temp Pulse Resp BP Pulse Ox 98.7 F 73 21 H 162/64 H 100 09/29/17 09:57 09/29/17 11:42 09/29/17 11:38 09/29/17 11:42 09/29/17 11:36 - Laboratory Result Diagrams: 09/29/17 10:30 09/29/17 10:30 Laboratory results interpreted by me: 09/29/17 09/29/17 09/29/17 10:30 10:30 10:30 Seg Neutrophils % 84.1 H Lymphocytes % 9.9 L Sodium 125.5 L Chloride 84 L Glucose 207 H POC Glucose Calcium 10.5 H AST 61 H Creatine Kinase 993 H CK-MB (CK-2) 4.83 H Total Protein 8.3 H Albumin 5.2 H Urine Protein Urine Glucose (UA) Urine Blood 09/29/17 09/29/17 10:30 11:31 Seg Neutrophils % Lymphocytes % Sodium Chloride Glucose POC Glucose 230 H Calcium AST Creatine Kinase CK-MB (CK-2) Total Protein Albumin Urine Protein 100 H Urine Glucose (UA) 150 H Urine Blood SMALL H - Diagnostic Test Radiology reviewed: Image reviewed, Reports reviewed - CT scan shows microvascular ischemia but no acute process and no evidence of stroke. - EKG Interpretation by Me EKG shows normal: Sinus rhythm Rate: Normal Rhythm: NSR Additional EKG results interpreted by me: 09/29/17 12:38 ST segment perhaps slightly elevated in lead V2. Discharge - Discharge Clinical Impression: Hyponatremia, Elevated CPK, Type 2 diabetes mellitus Condition: Fair Disposition: ADMITTED INPATIENT Admitting Provider: Hospitalist Unit Admitted: [facility]
[2017-09-29] MEDS ORDERED: NORMAL SALINE 1000 ML 1,000 ML IV ONE (12:45)
[2017-09-29] MEDS ORDERED: NORMAL SALINE 1000 ML 1,000 ML IV PRN (14:51)
[2017-09-29] MEDS ORDERED: DEXTROSE 40% GEL 15 GM TUBE PO PRN ×2 (14:57)
[2017-09-29] MEDS ORDERED: INSULIN LISPRO 100 UNIT/ML 3 ML VIAL SUBCUT PRN (14:57)
[2017-09-29] MEDS ORDERED: GLUCAGON,HUMAN RECOMB 1 MG INJ IM PRN (14:57)
[2017-09-29] MEDS ORDERED: DEXTROSE 50%-WATER 25 GM/50 ML DISP.SYRIN IV PRN ×2 (14:57)
[2017-09-29] MEDS ORDERED: (PENDING PHARMACY ID) (Memantine Hcl [Namenda] 5 MG) PO SCH (18:00)
[2017-09-29] MEDS: MEMANTINE HCL 10 MG TABLET PO SCH (18:41)
--- NOTE | 2017-09-29 18:44 | PDOC H&P ---
History of Present Illness Admission Date/PCP: 09/29/17 13:01 Patient complains of: Generalized weakness unable to ambulate History of Present Illness: ASHLYN SALCIDO is a 77 year old female "Patient has been weak over the last couple of days. Patient was found on the floor yesterday by her family She was placed in her bed She feels another time this morning and was brought to the ED for evaluation Upon evaluation in the ED she was found to be hyponatremic; CPK was over 900 Patient was subsequently admitted on the hospitalist service for further evaluation and care Past Medical History Cardiac Medical History: Reports: Coronary Artery Disease - HIGH CHOLESTEROL, Hyperlipidema, Hypertension Denies: Myocardial Infarction Pulmonary Medical History: Denies: Asthma, Bronchitis, Chronic Obstructive Pulmonary Disease (COPD), Pneumonia Neurological Medical History: Denies: Seizures Endocrine Medical History: Reports: Diabetes Mellitus Type 2 Musculoskeltal Medical History: Denies: Arthritis Hematology: Denies: Anemia Past Surgical History Past Surgical History: Reports: Hysterectomy Social History Information Source: Patient Lives with: Family Smoking Status: Never Smoker Frequency of Alcohol Use: None Hx Recreational Drug Use: No Drugs: None Hx Prescription Drug Abuse: No - Advance Directive Resuscitation Status: Full Code Surrogate healthcare decision maker:: HER NIECE WADE Family History Family History: Other - Heart disease ; arthritis Parental Family History Reviewed: Yes Children Family History Reviewed: Yes Sibling(s) Family History Reviewed.: Yes Medication/Allergy Home Medications: Atorvastatin Calcium [Lipitor 80 mg Tablet] 80 mg PO QHS #30 tablet 07/12/17 Memantine HCl [Namenda] 5 mg PO BID 07/12/17 Pioglitazone HCl [Actos 15 mg Tablet] 15 mg PO DAILY 07/12/17 Meloxicam 1 tab PO BID 09/29/17 Allergies/Adverse Reactions: Sulfa (Sulfonamide Antibiotics) Allergy (Verified 09/29/17 09:33) BLOTCHES Review of Systems Constitutional: PRESENT: as per HPI, fatigue, weakness Eyes: ABSENT: visual disturbances Cardiovascular: ABSENT: chest pain, dyspnea on exertion, edema, orthropnea, palpitations Respiratory: ABSENT: cough, hemoptysis Gastrointestinal: ABSENT: abdominal pain, constipation, diarrhea, hematemesis, hematochezia, nausea, vomiting Neurological: PRESENT: abnormal gait, frequent falls, weakness Psychiatric: ABSENT: anxiety, depression, hallucinations Endocrine: ABSENT: cold intolerance, polyphagia, polyuria Hematologic/Lymphatic: ABSENT: easy bleeding, easy bruising Physical Exam Vital Signs: Temp Pulse Resp BP Pulse Ox 97.9 F 84 16 144/62 H 100 09/29/17 14:00 09/29/17 16:24 09/29/17 16:24 09/29/17 16:24 09/29/17 16:24 Intake & Output 09/28/17 09/29/17 09/30/17 00:59 00:59 00:59 Output Total 300 Balance -300 General appearance: PRESENT: no acute distress, well-developed, well-nourished Head exam: PRESENT: atraumatic, normocephalic Eye exam: PRESENT: conjunctiva pink, EOMI, PERRLA. ABSENT: scleral icterus Neck exam: ABSENT: carotid bruit, JVD, lymphadenopathy, thyromegaly Respiratory exam: PRESENT: clear to auscultation rhoda. ABSENT: rales, rhonchi, wheezes Cardiovascular exam: PRESENT: RRR. ABSENT: diastolic murmur, rubs, systolic murmur Pulses: PRESENT: normal dorsalis pedis pul GI/Abdominal exam: PRESENT: normal bowel sounds, soft. ABSENT: distended, guarding, mass, organolmegaly, rebound, tenderness Extremities exam: PRESENT: full ROM. ABSENT: calf tenderness, clubbing, pedal edema Musculoskeletal exam: PRESENT: full ROM Neurological exam: PRESENT: alert, awake, CN II-XII grossly intact Psychiatric exam: PRESENT: appropriate affect, normal mood Results Impressions: Head CT 09/29/17 10:59 IMPRESSION: CHRONIC CHANGES OF ATROPHY AND MICROVASCULAR ISCHEMIA. NO ACUTE PROCESS. EVIDENCE OF ACUTE STROKE: NO. Assessment & Plan - Diagnosis (1) History of CVA (cerebrovascular accident) Is this a current diagnosis for this admission?: Yes Plan: Patient has generalized weakness and no new deficits But she has a very unsteady gait It we will schedule the patient for an MRI of the brain in a.m. to exclude a new CVA (2) Elevated CPK Is this a current diagnosis for this admission?: Yes Plan: Rhabdomyolysis likely secondary to falls But patient was on high-dose Lipitor which could explain also the high CPK (3) Hyponatremia Is this a current diagnosis for this admission?: Yes Plan: Likely secondary to dehydration We will treat with normal saline ; repeat BMP in a.m. (4) Type 2 diabetes mellitus Qualifiers: Diabetes mellitus alf insulin use: with alf use Diabetes mellitus complication status: with unspecified complications Qualified Code(s) : E11.8 - Type 2 diabetes mellitus with unspecified complications; Z79.4 - skilled nursing (current) use of insulin; Z79.4 - skilled nursing (current) use of insulin; Z79.4 - termite control technician (current) use of insulin; Z79.4 - termite control technician (current) use of insulin Is this a current diagnosis for this admission?: Yes Plan: Treat with intermittent doses of lispro and Accu-Chek before meals at bedtime (5) Hyperlipidemia Qualifiers: Hyperlipidemia type: unspecified Qualified Code(s): E78.5 - Hyperlipidemia , unspecified Is this a current diagnosis for this admission?: Yes - Time Time Spent: 50 to 70 Minutes - Patient was admitted to [facility] as an inpatient
--- NOTE | 2017-09-29 19:27 | EKG REPORT ---
SEVERITY:- BORDERLINE ECG - SINUS RHYTHM BORDERLINE PROLONGED QT INTERVAL : Confirmed by: Junior Kang 29-Sep-2017 19:25:34
[2017-09-29] MEDS: FAMOTIDINE INJ/PF 20 MG/2 ML SDV IV SCH (21:53)
[2017-09-30 05:28] LABS: ABSOLUTE BASOPHILS # (AUTO) 0.1 10^3/uL (0.0-0.2); ABSOLUTE EOSINOPHILS # (AUTO) 0.4 10^3/uL (0.0-0.6); ABSOLUTE LYMPHOCYTES (AUTO) 1.1 10^3/uL (0.5-4.7); ABSOLUTE MONOCYTES (AUTO) 0.6 10^3/uL (0.1-1.4); ABSOLUTE NEUT (AUTO) 5.2 10^3/uL (1.7-8.2); BASOPHILS % (AUTO) 1.3 % (0-2); EOSINOPHILS % (AUTO) 5.6 % (0-6); HEMATOCRIT 37.7 % (36.0-47.0); HEMOGLOBIN 13.1 g/dL (12.0-15.5); LYMPHOCYTES % (AUTO) 15.1 % (13-45); MEAN CORPUSCULAR HEMOGLOBIN 30.5 pg (27.0-33.4); MEAN CORPUSCULAR HGB CONC 34.7 g/dL (32.0-36.0); MEAN CORPUSCULAR VOLUME 88 fl (80-97); MONOCYTES % (AUTO) 7.7 % (3-13); PLATELET COUNT 233 10^3/uL (150-450); RED CELL DISTRIBUTION WIDTH 13.3 % (11.5-14.0); SEGMENTED NEUTROPHILS % (AUTO) 70.3 % (42-78); TOTAL CELLS COUNTED % (AUTO) 100 %; WHITE BLOOD COUNT 7.4 10^3/uL (4.0-10.5)
[2017-09-30 05:50] LABS: ALANINE AMINOTRANSFERASE 37 U/L (9-52); ALKALINE PHOSPHATASE 78 U/L (38-126); ANION GAP 13 (5-19); ASPARTATE AMINO TRANSFERASE 42 U/L (14-36); BILIRUBIN,DIRECT 0.4 mg/dL (0.0-0.4); BILIRUBIN,TOTAL 0.8 mg/dL (0.2-1.3); BLOOD UREA NITROGEN 14 mg/dL (7-20); CALCIUM 9.5 mg/dL (8.4-10.2); CARBON DIOXIDE 25 mmol/L (22-30); CHLORIDE 104 mmol/L (98-107); CREATINE KINASE 511 U/L (30-135); GLUCOSE 108 mg/dL (75-110); POTASSIUM 3.9 mmol/L (3.6-5.0); TOTAL PROTEIN 6.7 g/dL (6.3-8.2)
--- NOTE | 2017-09-30 08:20 | EKG REPORT ---
SEVERITY:- ABNORMAL ECG - SINUS RHYTHM PROBABLE INFERIOR and anterior INFARCT, OLD ABNRM R PROG, CONSIDER ASMI OR LEAD PLACEMENT : Confirmed by: Junior Kang 30-Sep-2017 05:19:43
[2017-09-30] MEDS: MEMANTINE HCL 10 MG TABLET PO SCH ×2 (11:05→18:27)
[2017-09-30] MEDS: FAMOTIDINE INJ/PF 20 MG/2 ML SDV IV SCH ×2 (11:06→22:38)
[2017-09-30] MEDS: ENOXAPARIN SODIUM INJ 40 MG/0.4 ML DISP.SYRIN SUBCUT SCH (11:06)
--- NOTE | 2017-09-30 12:35 | RADIOLOGY REPORT (SQ) ---
EXAM DESCRIPTION: MRI HEAD WITHOUT COMPLETED DATE/TIME: 09/30/2017 12:19 pm REASON FOR STUDY: UNSTEADY GAIT UNABLE TO AMBULATE COMPARISON: CT dated 09/29/2017. MR dated 07/12/2017. TECHNIQUE: Multiplanar imaging includes non-contrasted T1, T2, FLAIR, and diffusion with ADC map seq uences. Images stored on PACS. LIMITATIONS: None. FINDINGS: ANATOMY: No anomalies. Normal vascular flow voids. Pituitary fossa normal. CSF SPACES: Atrophy induced prominence of ventricles and CSF spaces. CEREBRUM: High signal intensity lesions scattered throughout the white matter on FLAIR imaging with d istribution suggesting micro-vascular ischemic changes. No evidence of hemorrhage, mass, or extraaxi al fluid collection. POSTERIOR FOSSA: Old infarct in the left cerebellar hemisphere. No hemorrhage. No edema, masses or ma ss effect. Internal auditory canals, cerebello-pontine angles, mastoids normal. DIFFUSION IMAGING: Negative for acute or sub-acute infarction. ORBITS: No masses. Globes normal. PARANASAL SINUSES: No fluid levels. Mucosa normal. OTHER: No other significant finding. IMPRESSION: ATROPHY AND CHRONIC MICRO-VASCULAR ISCHEMIC CHANGES. OLD INFARCT IN THE LEFT CEREBELLUM . NO ACUTE FINDINGS. EVIDENCE OF ACUTE STROKE: NO. TECHNICAL DOCUMENTATION: JOB ID: [id number] All Rights Reserved Reading location - IP/workstation name: [email or web address]
--- NOTE | 2017-09-30 13:38 | PDOC PROGRESS REPORT ---
Subjective Progress Note for:: 09/30/17 Subjective:: gfeels better no complaints was evaluated by PT and found to be a candidate for short term rehab Reason For Visit: HYPONATREMIA, RHABDOMYOLYSIS,UNABLE TO AMBULATE Physical Exam Vital Signs: Temp Pulse Resp BP Pulse Ox 98.5 F 71 15 118/47 L 100 09/30/17 11:35 09/30/17 11:35 09/30/17 11:35 09/30/17 11:35 09/30/17 11:35 Intake & Output 09/29/17 09/30/17 10/01/17 00:59 00:59 00:59 Intake Total 425 1859 Output Total 300 Balance 125 1859 Weight 45 kg General appearance: PRESENT: no acute distress, well-developed, well-nourished Head exam: PRESENT: atraumatic, normocephalic Eye exam: PRESENT: conjunctiva pink, EOMI, PERRLA. ABSENT: scleral icterus Neck exam: ABSENT: carotid bruit, JVD, lymphadenopathy, thyromegaly Respiratory exam: PRESENT: clear to auscultation rhoda. ABSENT: rales, rhonchi, wheezes Cardiovascular exam: PRESENT: RRR. ABSENT: diastolic murmur, rubs, systolic murmur Pulses: PRESENT: normal dorsalis pedis pul GI/Abdominal exam: PRESENT: normal bowel sounds, soft. ABSENT: distended, guarding, mass, organolmegaly, rebound, tenderness Extremities exam: PRESENT: full ROM. ABSENT: calf tenderness, clubbing, pedal edema Musculoskeletal exam: PRESENT: full ROM Neurological exam: PRESENT: alert, awake, CN II-XII grossly intact Psychiatric exam: PRESENT: appropriate affect, normal mood Results Laboratory Results: 09/30/17 04:39 09/30/17 04:39 09/30/17 09/30/17 09/30/17 04:39 04:39 04:39 WBC 7.4 RBC 4.30 Hgb 13.1 Hct 37.7 MCV 88 MCH 30.5 MCHC 34.7 RDW 13.3 Plt Count 233 Seg Neutrophils % 70.3 Lymphocytes % 15.1 Monocytes % 7.7 Eosinophils % 5.6 Basophils % 1.3 Absolute Neutrophils 5.2 Absolute Lymphocytes 1.1 Absolute Monocytes 0.6 Absolute Eosinophils 0.4 Absolute Basophils 0.1 Sodium 142.0 Potassium 3.9 Chloride 104 Carbon Dioxide 25 Anion Gap 13 BUN 14 Creatinine 0.82 Est GFR ( Amer) > 60 Est GFR (Non-Af Amer) > 60 Glucose 108 Calcium 9.5 Magnesium 2.2 Total Bilirubin 0.8 AST 42 H ALT 37 Alkaline Phosphatase 78 Total Protein 6.7 Albumin 4.0 TSH 2.14 09/30/17 04:39 Creatine Kinase 511 H Impressions: Head CT 09/29/17 10:59 IMPRESSION: CHRONIC CHANGES OF ATROPHY AND MICROVASCULAR ISCHEMIA. NO ACUTE PROCESS. EVIDENCE OF ACUTE STROKE: NO. Head MRI 09/30/17 00:00 IMPRESSION: ATROPHY AND CHRONIC MICRO-VASCULAR ISCHEMIC CHANGES. OLD INFARCT IN THE LEFT CEREBELLUM. NO ACUTE FINDINGS. EVIDENCE OF ACUTE STROKE: NO. Assessment & Plan - Diagnosis (1) History of CVA (cerebrovascular accident) Is this a current diagnosis for this admission?: Yes Plan: Patient has generalized weakness and no new deficits But she has a very unsteady gait It we will schedule the patient for an MRI of the brain in a.m. to exclude a new CVA 09/30 MRI negative for new CVA (old cerebellar stroke ) (2) Elevated CPK Is this a current diagnosis for this admission?: Yes Plan: improving (3) Hyponatremia Is this a current diagnosis for this admission?: Yes Plan: Likely secondary to dehydration We will treat with normal saline ; repeat BMP in a.m. 09/30 improved with hydration (4) Type 2 diabetes mellitus Qualifiers: Diabetes mellitus retirement insulin use: with retirement use Diabetes mellitus complication status: with unspecified complications Qualified Code(s) : E11.8 - Type 2 diabetes mellitus with unspecified complications; Z79.4 - retirement (current) use of insulin; Z79.4 - retirement (current) use of insulin; Z79.4 - retirement (current) use of insulin; Z79.4 - retirement (current) use of insulin Is this a current diagnosis for this admission?: Yes (5) Hyperlipidemia Qualifiers: Hyperlipidemia type: unspecified Qualified Code(s): E78.5 - Hyperlipidemia , unspecified Is this a current diagnosis for this admission?: Yes (6) Ambulatory dysfunction Is this a current diagnosis for this admission?: Yes Plan: discussed with patient and family will recommend short term rehab - Time Time Spent with patient: 25-34 minutes
[2017-10-01] MEDS ORDERED: DEXTROSE 40% GEL 15 GM TUBE PO PRN ×2 (08:27)
[2017-10-01] MEDS ORDERED: INSULIN LISPRO 100 UNIT/ML 3 ML VIAL SUBCUT PRN (08:27)
[2017-10-01] MEDS ORDERED: GLUCAGON,HUMAN RECOMB 1 MG INJ IM PRN (08:27)
[2017-10-01] MEDS ORDERED: DEXTROSE 50%-WATER 25 GM/50 ML DISP.SYRIN IV PRN ×2 (08:27)
[2017-10-01] MEDS: MEMANTINE HCL 10 MG TABLET PO SCH ×2 (10:22→18:23)
[2017-10-01] MEDS: MELOXICAM 7.5 MG TABLET PO SCH ×2 (10:22→18:23)
[2017-10-01] MEDS: ENOXAPARIN SODIUM INJ 40 MG/0.4 ML DISP.SYRIN SUBCUT SCH (10:25)
--- NOTE | 2017-10-01 15:35 | PDOC PROGRESS REPORT ---
Subjective Progress Note for:: 10/01/17 Subjective:: 77 yr old female with past history of CAD Hypertension Hyperlipidemia Diabetes Prior cerebellar CVA She presented with generalized weakness and inability to ambulate and was found on the floor by her family. Work up revealed dehydration and hyponatremia which improved with IV fluids. She has no complaints at present and is awaiting SNF for rehab. Reason For Visit: HYPONATREMIA, RHABDOMYOLYSIS,UNABLE TO AMBULATE Physical Exam Vital Signs: Temp Pulse Resp BP Pulse Ox 98.5 F 75 16 140/54 H 97 10/01/17 11:18 10/01/17 14:00 10/01/17 11:18 10/01/17 11:18 10/01/17 11:18 Intake & Output 09/30/17 10/01/17 10/02/17 06:59 06:59 06:59 Intake Total 1864 520 Output Total 300 Balance 1564 520 Weight 45 kg 45 kg General appearance: PRESENT: no acute distress Head exam: PRESENT: normocephalic Eye exam: ABSENT: scleral icterus Ear exam: PRESENT: normal external ear exam Mouth exam: PRESENT: moist Respiratory exam: PRESENT: symmetrical, unlabored. ABSENT: crackles Cardiovascular exam: PRESENT: RRR GI/Abdominal exam: PRESENT: normal bowel sounds, soft. ABSENT: tenderness Rectal exam: PRESENT: deferred Extremities exam: ABSENT: pedal edema Neurological exam: PRESENT: alert, awake Skin exam: ABSENT: petechiae Results Laboratory Results: 09/30/17 04:39 09/30/17 04:39 09/30/17 04:39 Creatine Kinase 511 H Impressions: Head CT 09/29/17 10:59 IMPRESSION: CHRONIC CHANGES OF ATROPHY AND MICROVASCULAR ISCHEMIA. NO ACUTE PROCESS. EVIDENCE OF ACUTE STROKE: NO. Head MRI 09/30/17 00:00 IMPRESSION: ATROPHY AND CHRONIC MICRO-VASCULAR ISCHEMIC CHANGES. OLD INFARCT IN THE LEFT CEREBELLUM. NO ACUTE FINDINGS. EVIDENCE OF ACUTE STROKE: NO. Assessment & Plan - Diagnosis (1) Elevated CPK Is this a current diagnosis for this admission?: Yes Plan: Rhabdomyolysis secondary to falls. (2) History of CVA (cerebrovascular accident) Is this a current diagnosis for this admission?: Yes Plan: PT, fall precautions (3) Hyponatremia Is this a current diagnosis for this admission?: Yes Plan: Improving with IV NS (4) Type 2 diabetes mellitus Qualifiers: Diabetes mellitus keno terminal operator insulin use: with keno terminal operator use Diabetes mellitus complication status: with unspecified complications Qualified Code(s) : E11.8 - Type 2 diabetes mellitus with unspecified complications; Z79.4 - [facility] (current) use of insulin; Z79.4 - keno terminal operator (current) use of insulin; Z79.4 - keno terminal operator (current) use of insulin; Z79.4 - keno terminal operator (current) use of insulin Is this a current diagnosis for this admission?: Yes Plan: Insulin sliding scale (5) Hyperlipidemia Qualifiers: Hyperlipidemia type: unspecified Qualified Code(s): E78.5 - Hyperlipidemia , unspecified Is this a current diagnosis for this admission?: Yes Plan: Continue Atorvastatin - Time Time Spent with patient: 25-34 minutes
[2017-10-01] MEDS: ATORVASTATIN CALCIUM 80 MG TABLET PO SCH (21:06)
[2017-10-02 05:44] LABS: ANION GAP 12 (5-19); BLOOD UREA NITROGEN 19 mg/dL (7-20); CALCIUM 10.1 mg/dL (8.4-10.2); CARBON DIOXIDE 28 mmol/L (22-30); CHLORIDE 97 mmol/L (98-107); CREATINE KINASE 306 U/L (30-135); GLUCOSE 139 mg/dL (75-110); PHOSPHORUS 4.2 mg/dL (2.5-4.5); POTASSIUM 4.3 mmol/L (3.6-5.0); SODIUM 136.9 mmol/L (137-145)
[2017-10-02] MEDS: MEMANTINE HCL 10 MG TABLET PO SCH ×2 (10:11→17:25)
[2017-10-02] MEDS: MELOXICAM 7.5 MG TABLET PO SCH ×2 (10:11→17:25)
[2017-10-02] MEDS: ENOXAPARIN SODIUM INJ 40 MG/0.4 ML DISP.SYRIN SUBCUT SCH (10:14)
--- NOTE | 2017-10-02 11:58 | PDOC PROGRESS REPORT ---
Subjective Progress Note for:: 10/02/17 Subjective:: 77 yr old female with past history of CAD Hypertension Hyperlipidemia Diabetes Prior cerebellar CVA She presented with generalized weakness and inability to ambulate and was found on the floor by her family. Work up revealed dehydration and hyponatremia which resolved with IV fluids. She is awaiting SNF for rehab. No complaints. Appetite is fair. Regular bowel movements Reason For Visit: HYPONATREMIA, RHABDOMYOLYSIS,UNABLE TO AMBULATE Physical Exam Vital Signs: Temp Pulse Resp BP Pulse Ox 98.3 F 65 12 118/61 98 10/02/17 03:12 10/02/17 07:00 10/02/17 03:12 10/02/17 03:12 10/02/17 03:12 Intake & Output 10/01/17 10/02/17 10/03/17 06:59 06:59 06:59 Intake Total 520 50 Balance 520 50 Weight 45 kg 44.7 kg General appearance: PRESENT: no acute distress Head exam: PRESENT: normocephalic Eye exam: ABSENT: scleral icterus Ear exam: PRESENT: normal external ear exam Mouth exam: PRESENT: moist Respiratory exam: PRESENT: symmetrical, unlabored. ABSENT: wheezes Cardiovascular exam: PRESENT: RRR GI/Abdominal exam: PRESENT: normal bowel sounds, soft. ABSENT: tenderness Rectal exam: PRESENT: deferred Extremities exam: ABSENT: pedal edema Results Laboratory Results: 09/30/17 04:39 10/02/17 04:30 10/02/17 04:30 Sodium 136.9 L Potassium 4.3 Chloride 97 L Carbon Dioxide 28 Anion Gap 12 BUN 19 Creatinine 0.92 Est GFR ( Amer) > 60 Est GFR (Non-Af Amer) 59 L Glucose 139 H Calcium 10.1 Phosphorus 4.2 Magnesium 2.1 09/30/17 10/02/17 04:39 04:30 Creatine Kinase 511 H 306 H Impressions: Head CT 09/29/17 10:59 IMPRESSION: CHRONIC CHANGES OF ATROPHY AND MICROVASCULAR ISCHEMIA. NO ACUTE PROCESS. EVIDENCE OF ACUTE STROKE: NO. Head MRI 09/30/17 00:00 IMPRESSION: ATROPHY AND CHRONIC MICRO-VASCULAR ISCHEMIC CHANGES. OLD INFARCT IN THE LEFT CEREBELLUM. NO ACUTE FINDINGS. EVIDENCE OF ACUTE STROKE: NO. Assessment & Plan - Diagnosis (1) Elevated CPK Is this a current diagnosis for this admission?: Yes Plan: Rhabdomyolysis secondary to falls. (2) History of CVA (cerebrovascular accident) Is this a current diagnosis for this admission?: Yes Plan: PT, fall precautions. Aspirin, Atorvastatin. (3) Hyponatremia Is this a current diagnosis for this admission?: Yes Plan: Resolved with IV NS (4) Type 2 diabetes mellitus Qualifiers: Diabetes mellitus skilled nursing insulin use: with skilled nursing use Diabetes mellitus complication status: with unspecified complications Qualified Code(s) : E11.8 - Type 2 diabetes mellitus with unspecified complications; Z79.4 - vermin exterminator (current) use of insulin; Z79.4 - vermin exterminator (current) use of insulin; Z79.4 - detention (current) use of insulin; Z79.4 - vermin exterminator (current) use of insulin Is this a current diagnosis for this admission?: Yes Plan: Insulin sliding scale (5) Hyperlipidemia Qualifiers: Hyperlipidemia type: unspecified Qualified Code(s): E78.5 - Hyperlipidemia , unspecified Is this a current diagnosis for this admission?: Yes Plan: Continue Atorvastatin - Time Time Spent with patient: 25-34 minutes
[2017-10-02] MEDS: ASPIRIN 81 MG TABLET, ENT COATED PO SCH (13:28)
[2017-10-02] MEDS: ATORVASTATIN CALCIUM 80 MG TABLET PO SCH (21:08)
[2017-10-03] MEDS: ENOXAPARIN SODIUM INJ 40 MG/0.4 ML DISP.SYRIN SUBCUT SCH (09:28)
[2017-10-03] MEDS: MELOXICAM 7.5 MG TABLET PO SCH ×2 (09:28→17:11)
[2017-10-03] MEDS: MEMANTINE HCL 10 MG TABLET PO SCH ×2 (09:28→17:11)
[2017-10-03] MEDS: ASPIRIN 81 MG TABLET, ENT COATED PO SCH (12:29)
--- NOTE | 2017-10-03 14:58 | PDOC DISCHARGE SUMMARY ---
General - Admit/Disc Date/PCP Admission Date/Primary Care Provider: 09/29/17 13:01 Discharge Date: 10/03/17 - Discharge Diagnosis (1) Elevated CPK Is this a current diagnosis for this admission?: Yes Summary: Secondary to fall. 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 No e/o new stroke on MRI (3) Hyponatremia Is this a current diagnosis for this admission?: Yes Summary: Resolved with IV NS. (4) Type 2 diabetes mellitus Is this a current diagnosis for this admission?: Yes (5) Hyperlipidemia Is this a current diagnosis for this admission?: Yes - Additional Information Resuscitation Status: Full Code Discharge Diet: Diabetic Discharge Activity: Activity As Tolerated, Supervised Activity Home Medications: Atorvastatin Calcium [Lipitor 80 mg Tablet] 80 mg PO QHS #30 tablet 07/12/17 Memantine HCl [Namenda] 5 mg PO BID 07/12/17 Pioglitazone HCl [Actos 15 mg Tablet] 15 mg PO DAILY 07/12/17 Meloxicam 1 tab PO BID 09/29/17 Aspirin [Ecotrin 81 mg EC Tablet] 81 mg PO DAILY@1300 tabec 10/03/17 History of Present Illness History of Present Illness: The patient is a 77 yr old female with past medical history of CAD Hyperlipidemia Hypertension Type 2 Diabetes, not on Insulin Prior CVA 3 months ago She presented to the hospital on 09/29/17 with generalized weakness and was found on the floor and was found to have bruises on her R chest and face. She uses a walker at home. She was found to have hyponatremia and mild rhabdomyolysis and was started on IV fluids. MRI Brain showed old cerebellar CVA. She was evaluated by PT and recommended continued PT. Sodium level is normal. Appetite is good. patient has repeatedly refused SNF for rehab and is adamant that she wants to go home. She lives with a friend. Home health and home PT have been requested. Hospital Course Hospital Course: As above Physical Exam Vital Signs: Temp Pulse Resp BP Pulse Ox 98.9 F 86 16 124/56 L 97 10/03/17 11:17 10/03/17 14:00 10/03/17 11:17 10/03/17 11:17 10/03/17 11:17 Intake & Output 0510/03/17 10/04/17 06:59 06:59 06:59 Intake Total 50 775 300 Balance 50 775 300 Weight 44.7 kg 43.7 kg General appearance: PRESENT: no acute distress Head exam: PRESENT: normocephalic Mouth exam: PRESENT: moist Respiratory exam: PRESENT: clear to auscultation rhoda, symmetrical, unlabored Cardiovascular exam: PRESENT: RRR GI/Abdominal exam: PRESENT: soft. ABSENT: tenderness Extremities exam: ABSENT: pedal edema Neurological exam: PRESENT: alert, awake, oriented to person, oriented to place Psychiatric exam: PRESENT: appropriate affect Results Laboratory Results: 09/30/17 04:39 10/02/17 04:30 09/30/17 10/02/17 04:39 04:30 Creatine Kinase 511 H 306 H Impressions: Head CT 09/29/17 10:59 IMPRESSION: CHRONIC CHANGES OF ATROPHY AND MICROVASCULAR ISCHEMIA. NO ACUTE PROCESS. EVIDENCE OF ACUTE STROKE: NO. Head MRI 09/30/17 00:00 IMPRESSION: ATROPHY AND CHRONIC MICRO-VASCULAR ISCHEMIC CHANGES. OLD INFARCT IN THE LEFT CEREBELLUM. NO ACUTE FINDINGS. EVIDENCE OF ACUTE STROKE: NO. Qualifiers - * PATIENT BEING DISCHARGED WITH ANY OF THE FOLLOWING DIAGNOSIS: No Plan Time Spent: Greater than 30 Minutes
--- NOTE | 2017-10-03 17:07 | PDOC PROGRESS REPORT ---
Subjective Progress Note for:: 10/03/17 Subjective:: 77 yr old female with past history of CAD Hypertension Hyperlipidemia Diabetes Prior cerebellar CVA She presented with generalized weakness and inability to ambulate and was found on the floor by her family. Work up revealed dehydration and hyponatremia which resolved with IV fluids. She is awaiting SNF for rehab. No complaints. Appetite is fair. Regular bowel movements Reason For Visit: HYPONATREMIA, RHABDOMYOLYSIS,UNABLE TO AMBULATE Physical Exam Vital Signs: Temp Pulse Resp BP Pulse Ox 98.9 F 86 16 124/56 L 97 10/03/17 11:17 10/03/17 14:00 10/03/17 11:17 10/03/17 11:17 10/03/17 11:17 Intake & Output 10/02/17 10/03/17 10/04/17 06:59 06:59 06:59 Intake Total 50 775 300 Balance 50 775 300 Weight 44.7 kg 43.7 kg General appearance: PRESENT: no acute distress, thin Head exam: PRESENT: normocephalic Ear exam: PRESENT: normal external ear exam Mouth exam: PRESENT: moist Respiratory exam: PRESENT: symmetrical, unlabored. ABSENT: crackles Cardiovascular exam: PRESENT: RRR GI/Abdominal exam: PRESENT: normal bowel sounds, soft. ABSENT: tenderness Rectal exam: PRESENT: deferred Extremities exam: ABSENT: pedal edema Results Laboratory Results: 09/30/17 04:39 10/02/17 04:30 09/30/17 10/02/17 04:39 04:30 Creatine Kinase 511 H 306 H Impressions: Head CT 09/29/17 10:59 IMPRESSION: CHRONIC CHANGES OF ATROPHY AND MICROVASCULAR ISCHEMIA. NO ACUTE PROCESS. EVIDENCE OF ACUTE STROKE: NO. Head MRI 09/30/17 00:00 IMPRESSION: ATROPHY AND CHRONIC MICRO-VASCULAR ISCHEMIC CHANGES. OLD INFARCT IN THE LEFT CEREBELLUM. NO ACUTE FINDINGS. EVIDENCE OF ACUTE STROKE: NO. Assessment & Plan - Diagnosis (1) Elevated CPK Is this a current diagnosis for this admission?: Yes Plan: Rhabdomyolysis secondary to falls. Improved. (2) History of CVA (cerebrovascular accident) Is this a current diagnosis for this admission?: Yes Plan: PT, fall precautions. Aspirin, Atorvastatin. (3) Hyponatremia Is this a current diagnosis for this admission?: Yes Plan: Resolved with IV NS. 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
[2017-10-03] MEDS: ATORVASTATIN CALCIUM 80 MG TABLET PO SCH (23:08)
--- NOTE | 2017-10-04 07:46 | PDOC TRANSFER SUMMARY ---
General - Admit/Disc Date/PCP Admission Date/Primary Care Provider: 09/29/17 13:01 Dr. Eric Evans Discharge Date: 10/04/17 - Discharge Diagnosis (1) Elevated CPK Is this a current diagnosis for this admission?: Yes (2) History of CVA (cerebrovascular accident) Is this a current diagnosis for this admission?: Yes (3) Hyponatremia Is this a current diagnosis for this admission?: Yes (4) Type 2 diabetes mellitus Is this a current diagnosis for this admission?: Yes (5) Hyperlipidemia Is this a current diagnosis for this admission?: Yes - Additional Information Resuscitation Status: Full Code Discharge Diet: Diabetic Discharge Activity: Activity As Tolerated, Supervised Activity Home Medications: Atorvastatin Calcium [Lipitor 80 mg Tablet] 80 mg PO QHS #30 tablet 07/12/17 Memantine HCl [Namenda] 5 mg PO BID 07/12/17 Pioglitazone HCl [Actos 15 mg Tablet] 15 mg PO DAILY 07/12/17 Meloxicam 1 tab PO BID 09/29/17 Aspirin [Ecotrin 81 mg EC Tablet] 81 mg PO DAILY@1300 tabec 10/03/17 History of Present Illness Admission Date/PCP: 09/29/17 13:01 Patient complains of: fall weakness History of Present Illness: The patient is a 77 yr old female with past medical history of CAD Hyperlipidemia Hypertension Type 2 Diabetes, not on Insulin Prior CVA 3 months ago She presented to the hospital on 09/29/17 with generalized weakness and was found on the floor and was found to have bruises on her R chest and face. She uses a walker at home. She was found to have hyponatremia and mild rhabdomyolysis and was started on IV fluids. MRI Brain showed old cerebellar CVA. She was evaluated by PT and recommended rehab at SNF. Sodium level is normal. Appetite is good. Hospital Course Hospital Course: As above. Discharge to SNF for subacute rehab. Physical Exam Vital Signs: Temp Pulse Resp BP Pulse Ox 98.2 F 66 15 136/60 H 98 10/04/17 04:18 10/04/17 07:00 10/04/17 04:18 10/04/17 04:18 10/04/17 04:18 Intake & Output 10/03/17 10/04/17 10/05/17 06:59 06:59 06:59 Intake Total 775 775 Balance 775 775 Weight 43.7 kg 43.1 kg General appearance: PRESENT: no acute distress Respiratory exam: PRESENT: symmetrical, unlabored GI/Abdominal exam: PRESENT: normal bowel sounds, soft Neurological exam: PRESENT: alert, awake Results Laboratory Results: 09/30/17 04:39 10/02/17 04:30 09/30/17 10/02/17 04:39 04:30 Creatine Kinase 511 H 306 H Impressions: Head CT 09/29/17 10:59 IMPRESSION: CHRONIC CHANGES OF ATROPHY AND MICROVASCULAR ISCHEMIA. NO ACUTE PROCESS. EVIDENCE OF ACUTE STROKE: NO. Head MRI 09/30/17 00:00 IMPRESSION: ATROPHY AND CHRONIC MICRO-VASCULAR ISCHEMIC CHANGES. OLD INFARCT IN THE LEFT CEREBELLUM. NO ACUTE FINDINGS. EVIDENCE OF ACUTE STROKE: NO. Transfer Plan - Disposition Transfer Plan: As above. Follow up PCP in 1 week Fall precautions PT Diabetic diet. - Time Spent with Patient Time spent with patient: Greater than 30 Minutes Qualifiers - * PATIENT BEING DISCHARGED WITH ANY OF THE FOLLOWING DIAGNOSIS: No
[2017-10-04 08:24] VITALS: BP 127/46
[2017-10-04] MEDS: MEMANTINE HCL 10 MG TABLET PO SCH (09:30)
[2017-10-04] MEDS: ENOXAPARIN SODIUM INJ 40 MG/0.4 ML DISP.SYRIN SUBCUT SCH (09:31)
[2017-10-04] MEDS: MELOXICAM 7.5 MG TABLET PO SCH (09:31)
[2017-10-04] MEDS ORDERED: PIOGLITAZONE HCL 15 MG TABLET PO SCH (10:00)
[2017-10-04] MEDS: ASPIRIN 81 MG TABLET, ENT COATED PO SCH (13:43)
== END 2017-10-04 17:13 | DRG 641 ==
LOC: ER 09:30 → EH 13:01 → 3N 16:26
PROVIDERS: ADMIT Internal Medicine; ATTEND Internal Medicine
DX: E87.1 Hypo-osmolality and hyponatremia (principal); Z68.1 Body mass index [BMI] 19.9 or less, adult; E11.9 Type 2 diabetes mellitus without complications; E78.00 Pure hypercholesterolemia, unspecified; S20.211A Contusion of right front wall of thorax, initial encounter; S00.83XA Contusion of other part of head, initial encounter; T79.6XXA Traumatic ischemia of muscle, initial encounter; W19.XXXA Unspecified fall, initial encounter; I25.10 Atherosclerotic heart disease of native coronary artery without angina pectoris; I10 Essential (primary) hypertension; E86.0 Dehydration; R63.6 Underweight; Z86.73 Personal history of transient ischemic attack (TIA), and cerebral infarction without residual deficits; Z79.899 Other long term (current) drug therapy; Z90.710 Acquired absence of both cervix and uterus; Z88.2 Allergy status to sulfonamides; Z79.4 Long term (current) use of insulin; Z82.61 Family history of arthritis; Z82.49 Family history of ischemic heart disease and other diseases of the circulatory system
CPT/HCPCS: 36415; 70450; 70551; 80048; 80053; 81001; 82550; 82553; 82962; 83735; 84100; 84443; 84484; 85025; 93005; 93010; 99285; J1650; J3490; J7030; S0028